=== PATIENT | female | born 1945 | race Caucasian/White ===

== ENCOUNTER 2016-07-19 17:34 | Inpatient (IN) | payer MEDICARE, OTHER ==
[~2016-07-19] VITALS: Ht 167.6 cm; Wt 51.5 kg
[~2016-07-19 17:34] MED LIST: FERR325T PO; PROT40TA PO; SYNT25TA PO; TAB-TAB PO
[2016-07-19 17:41] VITALS: BP 134/75; PULSE 79; RESP 16; TEMP 98.2; O2SAT 96
[2016-07-19] MEDS ORDERED: VITA100021 SL (17:59)
[2016-07-19] MEDS ORDERED: OMEP20TA PO (17:59)
[2016-07-19] MEDS ORDERED: SYNT25TA PO (17:59)
[2016-07-19] MEDS ORDERED: FERR325T PO (17:59)
--- NOTE | 2016-07-19 18:29 | PD ---
HPI Chief Complaint: Fall Time Seen by Provider: 18:21 Travel History International Travel<30 days: No Contact w/Intl Traveler<30days: No Traveled to known affect area: No History of Present Illness HPI This 71-year-old female had a fall at home. She tripped on a shoe. She did this with and landed on her left side. She is having pain in her left hip and left shoulder. She did not hit her head. There was no loss of consciousness. She is not on any blood thinners. She has been unable to walk on her left leg since the fall. She has a history of colon polyps and TIA. PFSH Past Medical History Hx Anticoagulant Therapy: No Arthritis: Yes Asthma: Yes Autoimmune Disease: No Depression: Yes (AFTER OF ) Cancer: Yes (PRE CA.POLYPS REMOVED.) Cardiovascular Problems: Yes High Cholesterol: No Cerebrovascular Accident: Yes (cva , tia) Endocrine: Yes Gastrointestinal Disorders: Yes GERD: Yes Genitourinary: Yes (ONLY HAS ONE KIDNEY SINCE ) Headaches: Yes Hiatal Hernia: No Immune Disorder: No Musculoskeletal: Yes Neurologic: Yes Psychiatric: Yes Reproductive: Yes (HYSTERECTOMY ) Respiratory: Yes (ENVIRONMENTAL ALLERGIES) Migraines: Yes (CHRONIC HX SINCE CHILDHOOD ) Sickle Cell Disease: No Thyroid Disease: Yes (TAKES MEDS FOR THYROID ISSUES ) Ulcer: No Influenza Vaccination: No ?: Not Past Surgical History Abdominal Surgery: Yes (TUMOR REMOVED, COLON RESECTION. ) Section: Yes (X1) Gynecologic Surgery: Yes (HYSTERECTOMY, ) Hysterectomy: Yes Pacemaker: No Thoracic Surgery: Yes ("LUNG WEDGE"- RLL) Other Surgery: Yes Social History Alcohol Use: No Tobacco Use: No Substance Use: No Allergies-Medications (Allergen,Severity, Reaction): Coded Allergies: Morphine (Verified Allergy, Intermediate, hives, 07/19/16) Demerol (Verified Allergy, Unknown, Swelling, 07/19/16) Reported Meds & Prescriptions Reported Meds & Active Scripts Active Reported Vitamin B-12 (Cyanocobalamin) 1,000 Mcg Subl 1,000 Mcg SL DAILY Omeprazole 20 Mg Tab 20 Mg PO DAILY Synthroid (Levothyroxine Sodium) 25 Mcg Tab 25 Mcg PO DAILY Ferrous Sulfate 325 Mg Tab 325 Mg PO DAILY Review of Systems General / Constitutional: No: Fever, Chills Eyes: No: Diploplia, Blurred Vision HENT: No: Headaches Cardiovascular: No: Chest Pain or Discomfort, Palpitations Respiratory: No: Cough, Shortness of Breath Gastrointestinal: No: Nausea, Vomiting Genitourinary: No: Urgency, Frequency Musculoskeletal: Positive: Myalgias, Pain Skin: No Rash, No Itching Neurologic: No: Weakness, Dizziness Psychiatric: No: Anxiety Endocrine: No: Heat Intolerance, Cold Intolerance Hematologic/Lymphatic: No: Easy Bruising Physical Exam Narrative GENERAL: Thin lady SKIN: Warm and dry. HEAD: Atraumatic. Normocephalic. EYES: Pupils equal and round. No scleral icterus. No injection or drainage. ENT: No nasal bleeding or discharge. Mucous membranes pink and moist. NECK: Trachea midline. No JVD. CARDIOVASCULAR: Regular rate and rhythm. No murmur appreciated. RESPIRATORY: No accessory muscle use. Clear to auscultation. Breath sounds equal bilaterally. GASTROINTESTINAL: Abdomen soft, non-tender, nondistended. Hepatic and splenic margins not palpable. MUSCULOSKELETAL: No obvious deformities. No clubbing. No cyanosis. No edema. There is some tenderness over the proximal humerus. She is able to move the shoulder . There is no ecchymosis or deformity. There is tenderness in the left inguinal area. There is some pain with movement at the left hip. There is no shortening of the hip NEUROLOGICAL: Awake and alert. No obvious cranial nerve deficits. Motor grossly within normal limits. Normal speech. PSYCHIATRIC: Appropriate mood and affect; insight and judgment normal. Data Data Last Documented VS Vital Signs Date Time Temp Pulse Resp B/P Pulse Ox O2 Delivery O2 Flow Rate FiO2 07/19/16 17:41 98.2 79 16 134/75 96 Orders Hip, Uni(Ap&Lat) W Ap Pelvis (07/19/16 18:27) Shoulder, Complete (>2vws) (07/19/16 18:27) Chest, Single Ap (07/19/16 ) Electrocardiogram (07/19/16 18:57) Complete Blood Count With Diff (07/19/16 18:57) Comprehensive Metabolic Panel (07/19/16 18:57) Prothrombin Time / Inr (Pt) (07/19/16 18:57) Act Partial Throm Time (Ptt) (07/19/16 18:57) Urinalysis - C+S If Indicated (07/19/16 18:57) Type And Screen (07/19/16 18:57) Iv Access Insert/Monitor (07/19/16 18:57) Oximetry (07/19/16 18:57) Ecg Monitoring (07/19/16 18:57) Sodium Chloride 0.9% Flush (Ns Flush) (07/19/16 19:00) Sodium Chlor 0.9% 1000 Ml Inj (Ns 1000 M (07/19/16 19:15) Ondansetron Inj (Zofran Inj) (07/19/16 19:15) Hydromorphone Pf Inj (Dilaudid Pf Inj) (07/19/16 19:15) Urinary Catheter Insert/Apply (07/19/16 19:47) Labs Laboratory Tests Test 07/19/16 07/19/16 19:25 20:00 White Blood Count 17.0 TH/MM3 Red Blood Count 4.35 MIL/MM3 Hemoglobin 12.3 GM/DL Hematocrit 37.5 % Mean Corpuscular Volume 86.3 FL Mean Corpuscular Hemoglobin 28.3 PG Mean Corpuscular Hemoglobin 32.7 % Concent Red Cell Distribution Width 15.8 % Platelet Count 360 TH/MM3 Mean Platelet Volume 10.4 FL Neutrophils (%) (Auto) 87.8 % Lymphocytes (%) (Auto) 5.7 % Monocytes (%) (Auto) 5.3 % Eosinophils (%) (Auto) 0.5 % Basophils (%) (Auto) 0.7 % Neutrophils # (Auto) 14.9 TH/MM3 Lymphocytes # (Auto) 1.0 TH/MM3 Monocytes # (Auto) 0.9 TH/MM3 Eosinophils # (Auto) 0.1 TH/MM3 Basophils # (Auto) 0.1 TH/MM3 CBC Comment AUTO DIFF Differential Comment AUTO DIFF CONFIRMED Platelet Estimate NORMAL Platelet Morphology Comment NORMAL Red Cell Morphology Comment NORMAL Prothrombin Time 10.1 SEC Prothromb Time International 0.9 RATIO Ratio Activated Partial 23.4 SEC Thromboplast Time Sodium Level 145 MEQ/L Potassium Level 4.2 MEQ/L Chloride Level 112 MEQ/L Carbon Dioxide Level 24.1 MEQ/L Anion Gap 9 MEQ/L Blood Urea Nitrogen 21 MG/DL Creatinine 0.54 MG/DL Estimat Glomerular Filtration 111 ML/MIN Rate Random Glucose 99 MG/DL Calcium Level 8.2 MG/DL Total Bilirubin 0.2 MG/DL Aspartate Amino Transf 28 U/L (AST/SGOT) Alanine Aminotransferase 22 U/L (ALT/SGPT) Alkaline Phosphatase 133 U/L Total Protein 5.0 GM/DL Albumin 1.9 GM/DL Urine pH 6.5 Urine Protein NEG mg/dL Urine Glucose (UA) NEG mg/dL Urine Ketones 15 mg/dL Urine Occult Blood NEG Urine Nitrite NEG Urine Bilirubin NEG Urine Leukocyte Esterase NEG MDM Medical Decision Making Medical Screen Exam Complete: Yes Emergency Medical Condition: Yes Medical Record Reviewed: Yes Differential Diagnosis Differential includes fractured shoulder, fractured hip, fractured pelvis Narrative Course X-ray of the left shoulder shows degenerative changes. X-ray of the left hip shows a minimally displaced subcapital fracture of the left femoral neck. Chest x-ray shows minimal basilar scarring. I have discussed the case with Dr. Eng. He requests admission to medical service with consult to orthopedics. Diagnosis Primary Impression: Fracture of left hip Qualified Code: S72.002A - Fracture of left hip, closed, initial encounter Admitting Information Admitting Physician Requests: Admit Mayur Mendez MD Jul 19, 2016 18:29
[2016-07-19] MEDS ORDERED: SODIUM CHLORIDE 0.9% FLUSH 5 ML FLUSH IVF PRN (19:00)
[2016-07-19] MEDS ORDERED: HYDROmorphone HCL PF 1 MG/ML VIAL IV PUSH ONE (19:15)
[2016-07-19] MEDS ORDERED: ONDANSETRON HCL 4 MG/2 ML VIAL IV PUSH ONE (19:15)
--- NOTE | 2016-07-19 19:24 | RADHPO ---
EXAM DATE/TIME: 07/19/2016 18:36 [facility] COMPARISON: No previous studies available for comparison. INDICATIONS : Left shoulder pain after falling today. MEDICAL HISTORY : Venous insufficiency. CVA. TIA. Asthma. SURGICAL HISTORY : Hysterectomy. Colon resection. ENCOUNTER: Initial ACUITY: 1 day PAIN SCORE: 7/10 LOCATION: Left shoulder. FINDINGS: Multiple view examination of the left shoulder demonstrates advanced osteoarthritis of the shoulder j oint. No acute fracture or dislocation. CONCLUSION: 1. Osteoarthritis of the left shoulder joint with subchondral cystic changes in the humeral head. No acute bony abnormalities. Shawn Gallardo MD on July 19, 2016 at 19:20 Board Certified Radiologist. This report was verified electronically.
--- NOTE | 2016-07-19 19:36 | RADHPO ---
EXAM DATE/TIME: 07/19/2016 18:38 [facility] COMPARISON: No previous studies available for comparison. INDICATIONS : Left hip pain after falling today. MEDICAL HISTORY : CVA. TIA. Asthma. SURGICAL HISTORY : Hysterectomy. Colon resection. ENCOUNTER: Initial ACUITY: 1 day PAIN SCORE: 7/10 LOCATION: Left hip. FINDINGS: There is a minimally displaced subcapital fracture of the left femoral neck. No dislocation. No other fractures noted. CONCLUSION: 1. Minimally displaced subcapital fracture left femoral neck. Shawn Gallardo MD on July 19, 2016 at 19:23 Board Certified Radiologist. This report was verified electronically.
--- NOTE | 2016-07-19 19:38 | RADHPO ---
EXAM DATE/TIME: 07/19/2016 18:57 [facility] COMPARISON: CHEST SINGLE AP, October 05, 2013, 18:28. INDICATIONS : Evaluate for pneumonia, pneumothorax, or communicable disease. Patient fell today. Possible hip fra cture. MEDICAL HISTORY : CVA. TIA. Asthma. SURGICAL HISTORY : Hysterectomy. Colon resection. ENCOUNTER: Initial ACUITY: 1 day PAIN SCORE: 0/10 LOCATION: Bilateral chest FINDINGS: A single view of the chest demonstrates minimal basilar lung scarring. Right costophrenic angle is cl ipped on this exam. Osteoarthritis of the left shoulder joint. No pneumothorax or effusion. CONCLUSION: 1. No pneumothorax or effusion. Osteoarthritis of the left shoulder. Basilar lung scarring. Shawn Gallardo MD on July 19, 2016 at 19:35 Board Certified Radiologist. This report was verified electronically.
[2016-07-19] MEDS: SODIUM CHLOR 0.9% 1000 ML INJ 1,000 ML IV SCH (19:39)
[2016-07-19 19:47] LABS: AUTOMATED NEUTROPHIL # 14.9 TH/MM3 (1.8-7.7); BASOPHIL # 0.1 TH/MM3 (0-0.2); BASOPHIL % 0.7 % (0.0-2.0); EOSINOPHIL # 0.1 TH/MM3 (0-0.4); EOSINOPHIL % 0.5 % (0.0-4.0); HEMATOCRIT 37.5 % (35.0-46.0); LYMPH % 5.7 % (9.0-44.0); MEAN CELL VOLUME 86.3 FL (80.0-100.0); MEAN CORPUSCULAR HEMOGLOBIN 28.3 PG (27.0-34.0); MEAN CORPUSCULAR HGB CONC 32.7 % (32.0-36.0); MONO % 5.3 % (0.0-8.0); NEUT % 87.8 % (16.0-70.0); PLATELET COUNT 360 TH/MM3 (150-450); RED BLOOD COUNT 4.35 MIL/MM3 (4.00-5.30); RED CELL DISTRIBUTION WIDTH 15.8 % (11.6-17.2)
[2016-07-19 19:56] LABS: CHLORIDE 112 MEQ/L (98-107); POTASSIUM 4.2 MEQ/L (3.5-5.1); SODIUM (NA) 145 MEQ/L (136-145)
[2016-07-19 19:57] LABS: HEMO FLAGS AUTO DIFF
[2016-07-19 19:59] LABS: APTT (PATIENT) 23.4 SEC (24.3-30.1); INTERNATIONAL NORMALIZED RATIO 0.9 RATIO; PROTHROMBIN TIME - PATIENT 10.1 SEC (9.8-11.6)
[2016-07-19 20:00] LABS: ANION GAP 9 MEQ/L (5-15); BICARBONATE 24.1 MEQ/L (21.0-32.0); BLOOD UREA NITROGEN 21 MG/DL (7-18)
[2016-07-19 20:03] LABS: ALT (GPT) 22 U/L (10-53); AST (GOT) 28 U/L (15-37); GLOMERULAR FILTRATION RATE 111 ML/MIN (>89)
[2016-07-19 20:04] LABS: TOTAL BILIRUBIN ADULT 0.2 MG/DL (0.2-1.0)
[2016-07-19 20:06] LABS: ALKALINE PHOSPHATASE 133 U/L (45-117)
[2016-07-19 20:10] LABS: BLOOD, URINE NEG (NEG); GLUCOSE,URINE NEG (NEG); KETONE, URINE 15 mg/dL (NEG); NITRITE,URINE NEG (NEG); PH, URINE 6.5 (5.0-8.5)
[2016-07-19 20:19] LABS: PLATELET ESTIMATE SMEAR NORMAL (NORMAL); PLATELET MORPHOLOGY NORMAL (NORMAL); SCAN/DIFF AUTO DIFF CONFIRMED
[2016-07-19 20:25] LABS: METHOD OF COLLECTION CATH; URINE COLOR YELLOW (YELLW/STRAW)
[2016-07-19 20:26] LABS: MUCUS URINE OCC /lpf (OCC); SQUAMOUS EPITHELIAL CELL URINE 0-5 /hpf (0-5)
[2016-07-19 20:28] LABS: COMMENT (UR) CULT NOT INDICATED; CULTURE IF INDICATED CULT NOT INDICATED
[2016-07-19 20:30] VITALS: BP 123/82; PULSE 88; RESP 18; O2SAT 94
--- NOTE | 2016-07-19 20:58 | HHI.HP ---
HPI Service [facility] Hospitalists Primary Care Physician Jun Us M.D. Admission Diagnosis FRACTURE LEFT HIP Chief Complaint: shoulder and hip pain s/p fall Travel History International Travel<30 Days: No Contact w/Intl Traveler <30 Da: No Traveled to Known Affected Are: No History of Present Illness I have been asked by orthopedics department Dr. Eng to admit this 71-year- old female with hypothyroidism, hx of GERD, mild anemia who had a fall at home to the adult medical service. She reportedly tripped on a shoe and landed on her left side. She is having pain in her left hip and left shoulder. She did not hit her head and there was reportedly no loss of consciousness. She is not on any blood thinners. She has been unable to walk on her left leg since the fall. She has a history of gastric and colon polyps retiring partial gastrectomy and partial colectomy approximately 1-1/2 years ago. Review of Systems Constitutional: COMPLAINS OF: Weight loss, Change in appetite, DENIES: Diaphoretic episodes, Fatigue, Fever, Weight gain, Chills, Dizziness, Night Sweats Endocrine: DENIES: Abnorml menstrual pattern, Heat/cold intolerance, Polydipsia , Polyuria, Polyphagia Eyes: DENIES: Blurred vision, Diplopia, Eye inflammation, Eye pain, Vision loss , Photosensitivity, Double Vision Respiratory: DENIES: Apneas, Cough, Snoring, Wheezing, Hemoptysis, Sputum production, Shortness of breath Cardiovascular: DENIES: Chest pain, Palpitations, Syncope, Dyspnea on Exertion , PND, Lower Extremity Edema, Orthopnea, Claudication Gastrointestinal: DENIES: Abdominal pain, Black stools, Bloody stools, BRB per rectum, Constipation, Diarrhea, GERD, Nausea, Reflux, Vomiting, Difficulty Swallowing, Anorexia, See HPI Musculoskeletal: COMPLAINS OF: Joint pain Integumentary: DENIES: Abnormal pigmentation, Pruritus, Rash, Nail changes, Breast masses, Breast skin changes, Nipple discharge Hematologic/lymphatic: DENIES: Bruising, Lymphadenopathy Immunologic/allergic: DENIES: Eczema, Urticaria Neurologic: DENIES: Abnormal gait, Headache, Localized weakness, Paresthesias, Seizures, Speech Problems, Tremor, Poor Balance Psychiatric: DENIES: Anxiety, Confusion, Mood changes, Depression, Hallucinations, Agitation, Suicidal Ideation, Homicidal Ideation, Delusions, History of Bipolar, History of Schizophrenia Past Family Social History Past Medical History mild anemia GERD Fatigue Pulm HTN Prior uterine CA Past Surgical History c/s partial colectomy and partial gastrectomy in January 2015 at [facility] hysterectomy Wedge resection of lung due to benign tumor many years ago. 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 Alert and oriented. Pleasant. Cooperative. SKIN: No rashes, ecchymoses or lesions. Cool and dry. HEAD: Atraumatic. Normocephalic. No temporal or scalp tenderness. EYES: Pupils equal round and reactive. Extraocular motions intact. No scleral icterus. No injection or drainage. ENT: Nose without bleeding, purulent drainage or septal hematoma. Airway patent. NECK: Trachea midline. No JVD or lymphadenopathy. Supple, nontender, no meningeal signs. CARDIOVASCULAR: Regular rate and rhythm without murmurs, gallops, or rubs. RESPIRATORY: Clear to auscultation. Breath sounds equal bilaterally. No wheezes , rales, or rhonchi. GASTROINTESTINAL: Abdomen soft, non-tender, nondistended. No hepato-splenomegaly , or palpable masses. No guarding. Bowel sounds normal. MUSCULOSKELETAL: Extremities without clubbing, cyanosis, or edema. Noted tenderness to palpation over her left lateral hip with some mild external rotation and shortening of left lower extremity. Positive apprehension test left shoulder. NEUROLOGICAL: Awake and alert. Cranial nerves II through XII intact. Motor and sensory grossly within normal limits. Five out of 5 muscle strength in all muscle groups but pain limits her movement in left lower extremity. Normal speech. Laboratory Laboratory Tests Test 07/19/16 07/19/16 19:25 20:00 White Blood Count 17.0 Red Blood Count 4.35 Hemoglobin 12.3 Hematocrit 37.5 Mean Corpuscular Volume 86.3 Mean Corpuscular Hemoglobin 28.3 Mean Corpuscular Hemoglobin 32.7 Concent Red Cell Distribution Width 15.8 Platelet Count 360 Mean Platelet Volume 10.4 Neutrophils (%) (Auto) 87.8 Lymphocytes (%) (Auto) 5.7 Monocytes (%) (Auto) 5.3 Eosinophils (%) (Auto) 0.5 Basophils (%) (Auto) 0.7 Neutrophils # (Auto) 14.9 Lymphocytes # (Auto) 1.0 Monocytes # (Auto) 0.9 Eosinophils # (Auto) 0.1 Basophils # (Auto) 0.1 CBC Comment AUTO DIFF Differential Comment AUTO DIFF CONFIRMED Platelet Estimate NORMAL Platelet Morphology Comment NORMAL Red Cell Morphology Comment NORMAL Prothrombin Time 10.1 Prothromb Time International 0.9 Ratio Activated Partial 23.4 Thromboplast Time Sodium Level 145 Potassium Level 4.2 Chloride Level 112 Carbon Dioxide Level 24.1 Anion Gap 9 Blood Urea Nitrogen 21 Creatinine 0.54 Estimat Glomerular Filtration 111 Rate Random Glucose 99 Calcium Level 8.2 Total Bilirubin 0.2 Aspartate Amino Transf 28 (AST/SGOT) Alanine Aminotransferase 22 (ALT/SGPT) Alkaline Phosphatase 133 Total Protein 5.0 Albumin 1.9 Blood Type O POSITIVE Urine Collection Type CATH Urine Color YELLOW Urine Turbidity CLEAR Urine pH 6.5 Urine Specific [place] 1.015 Urine Protein NEG Urine Glucose (UA) NEG Urine Ketones 15 Urine Occult Blood NEG Urine Nitrite NEG Urine Bilirubin NEG Urine Leukocyte Esterase NEG Urine RBC 4-9 Urine Squamous Epithelial 0-5 Cells Urine Mucus OCC Microscopic Urinalysis Comment CULT NOT INDICATED Result Diagram: 07/19/16192407/19/161924 Assessment and Plan Problem List: (1) Fracture of left hip Status: Acute Plan: management per Dr Velasquez john requested admission to medical service We'll provide pain medication and gentle IV fluids overnight. (2) Leukocytosis Status: Acute Plan: possibly a/w stress reaction. CBC recently normal as outpt in early Jul 2016. Will repeat in AM. (3) Hypothyroidism Status: Chronic Plan: continue outpt med TSH 3.3 07/13/16 (4) GERD (gastroesophageal reflux disease) Status: Chronic Plan: continue ppi Code Status Full Discussed Condition With Patient and her daughter Physician Certification 2 Midnight Certification Type: Admission for Inpatient Services Order for Inpatient Services The services are ordered in accordance with Medicare regulations or non- Medicare payer requirements, as applicable. In the case of services not specified as inpatient-only, they are appropriately provided as inpatient services in accordance with the 2-midnight benchmark. Estimated LOS (days): 3 days is the estimated time the patient will need to remain in the hospital, assuming treatment plan goals are met and no additional complications. Post-Hospital Plan: SNF Problem Qualifiers (1) Fracture of left hip: Qualified Code: S72.002A - Fracture of left hip, closed, initial encounter Dwaine Fink PhD MD Jul 19, 2016 20:58
[2016-07-19] MEDS ORDERED: ONDANSETRON HCL 4 MG/2 ML VIAL IV PUSH PRN (21:45)
[2016-07-19 23:22] VITALS: RESP 18; O2SAT 98
[2016-07-20] VITALS (7 sets, daily range): BP systolic 100–134; BP diastolic 57–73; PULSE 58–92; RESP 16–18; TEMP 96.2–96.6; O2SAT 94–96
[2016-07-20] MEDS: HYDROmorphone HCL PF 1 MG/ML VIAL IV PUSH PRN ×4 (00:10→19:52)
[2016-07-20] MEDS: LEVOTHYROXINE SODIUM 25 MCG TAB PO SCH (06:13)
[2016-07-20 07:30] LABS: AUTOMATED NEUTROPHIL # 9.3 TH/MM3 (1.8-7.7); BASOPHIL % 0.3 % (0.0-2.0); EOSINOPHIL # 0.1 TH/MM3 (0-0.4); EOSINOPHIL % 0.5 % (0.0-4.0); HEMATOCRIT 33.6 % (35.0-46.0); HEMO FLAGS DIFF FINAL; LYMPH % 6.6 % (9.0-44.0); LYMPHOCYTE # 0.7 TH/MM3 (1.0-4.8); MEAN CELL VOLUME 84.5 FL (80.0-100.0); MEAN CORPUSCULAR HEMOGLOBIN 28.3 PG (27.0-34.0); MEAN CORPUSCULAR HGB CONC 33.5 % (32.0-36.0); MONO % 8.1 % (0.0-8.0); NEUT % 84.5 % (16.0-70.0); PLATELET COUNT 316 TH/MM3 (150-450); RED BLOOD COUNT 3.97 MIL/MM3 (4.00-5.30); RED CELL DISTRIBUTION WIDTH 15.5 % (11.6-17.2)
[2016-07-20 07:41] LABS: POTASSIUM 3.6 MEQ/L (3.5-5.1)
[2016-07-20 07:57] LABS: BICARBONATE 24.6 MEQ/L (21.0-32.0); CALCIUM-PROTEIN CORRECTED 9.1 MG/DL (8.5-10.1); TOTAL BILIRUBIN ADULT 0.4 MG/DL (0.2-1.0)
[2016-07-20] MEDS ORDERED: ONDANSETRON HCL 4 MG/2 ML VIAL IV PUSH ONE (08:06)
[2016-07-20] MEDS ORDERED: PROPOFOL 200 MG/20 ML AMP IV ONE (08:06)
[2016-07-20] MEDS ORDERED: PHENYLEPH/NS 1000 MCG/10 ML SYR IV ONE (08:06)
[2016-07-20] MEDS ORDERED: LACTATED RINGER'S 1000 ML INJ 1,000 ML IV ONE (08:06)
[2016-07-20] MEDS ORDERED: CYAN500S SL (08:53)
[2016-07-20] MEDS ORDERED: LEVO25TA4 PO (08:56)
[2016-07-20] MEDS: LACTATED RINGER'S 1000 ML IV SCH (09:00)
[2016-07-20] MEDS ORDERED: INSULIN HUMAN REGULAR 1,000 UNITS/10 ML VIAL SQ PRN (09:00)
[2016-07-20] MEDS ORDERED: METOPROLOL TARTRATE 25 MG TAB PO PRN (09:00)
[2016-07-20] MEDS: SODIUM CHLORID 0.9% 500 ML IV SCH (09:00)
[2016-07-20] MEDS ORDERED: HYDROmorphone HCL PF 2 MG/ML VIAL ONE (10:42)
[2016-07-20] MEDS ORDERED: FAMOTIDINE 20 MG/2 ML VIAL ONE (10:43)
[2016-07-20] MEDS ORDERED: ACETAMINOPHEN 1000 MG/100 ML VIAL IV ONE (10:43)
[2016-07-20] MEDS ORDERED: VANCOMYCIN HCL 1000 MG VIAL ONE (11:26)
[2016-07-20] MEDS ORDERED: SODIUM CHLOR 0.9% 250 ML INJ 250 ML ONE (11:26)
[2016-07-20] MEDS ORDERED: ceFAZolin INJ 1,000 MG VIAL ONE (11:26)
[2016-07-20] MEDS ORDERED: BUPIVACAINE/EPINEPHRINE 0.25% PF 30 ML VIAL ONE (11:29)
--- NOTE | 2016-07-20 12:21 | PD.OP ---
cc: John Machado MD Operative Report Date of Surgery: Jul 20, 2016 Preoperative Diagnosis: Impacted left femoral neck fracture Postoperative Diagnosis: Same Procedure: Left hip pinning Anesthesia: Gen. Surgeon: John Machado Computer Engineering Technologist(s): DALLAS Smith PA-C The surgical procedure was assisted by my physician electrician station assistant. My P.A. presence was necessary throughout this case for the manipulation and positioning of the surgical extremity. My P.A. was assisting me throughout the duration of this procedure. The skill set of a physician electrician station assistant was medically necessary to complete this procedure. During the surgical case the salesperson surgical appliances was working at the back table and the physician electrician station assistant was directly assisting me. Operation and Findings: Plan of activity: TTWB Patient was seen and evaluated preoperatively. The patient has significant hip pain from impacted femoral neck fracture. The risk and benefits of surgery were discussed in depth with the patient to include bleeding infection nonunion malunion, avascular necrosis and need for hip replacement painful hardware as well as medical competitions including but not stroke heart attack and . Informed consent was obtained. Operative site was marked. Patient was brought to the operating room and placed on fracture table. IV sedation was administered by anesthesiologist. Timeout procedure was performed. Hip and leg were prepped with alcohol followed by Hibiclens and draped in the usual sterile fashion. IV antibiotics were given prior to incision. Procedure began with evaluation of fracture under fluoroscopy. Leg was gently manipulated to improve alignment. Excellent reduction was achieved. Fluoroscopy was used to confirm reduction. A three cm incision was along the lateral aspect of the proximal femur . Subcutaneous tissue was dissected bluntly. Three guidepins were placed through the lateral cortex of the proximal femur. Guide pins were placed in an inverted triangle position. Guide pins were advanced across the fracture site into the femoral head. Fluoroscopy confirmed appropriate guidepin placement. The screw lengths were measured. A cannulated drill was placed over each of the guide pins. Appropriate length Synthes 7.3 cannulated screws were placed over the guidepins. Good compression was applied across the fracture. Final fluoroscopy revealed well aligned fracture with well-placed hardware. Incision was closed with 3-0 Vicryl and noe. Sterile dressings were applied. Patient was awakened and transferred to recovery room. John Machado MD Jul 20, 2016 12:20
[2016-07-20] MEDS ORDERED: SODIUM CHLORIDE 0.9% FLUSH 5 ML FLUSH IVF PRN (12:30)
[2016-07-20] MEDS ORDERED: ACETAMINOPHEN/HYDROcodone 325 MG/5 MG TAB PO PRN ×2 (12:30)
[2016-07-20] MEDS ORDERED: Post-op Orders (for Pharmacy) MISC XX ONE (12:30)
[2016-07-20] MEDS ORDERED: ERGOCALCIFEROL (VIT D2) 50,000 UNIT CAP PO ONE (12:30)
[2016-07-20] MEDS ORDERED: NORC5TAB PO (12:33)
[2016-07-20] MEDS ORDERED: XARE10TA PO (12:34)
[2016-07-20] MEDS ORDERED: WALKER/ADULT/FO1 MIS (12:36)
--- NOTE | 2016-07-20 12:52 | MB ---
cc: ROMAN BYERS DATE OF CONSULTATION: 07/20/2016 REASON FOR CONSULTATION Left hip fracture. CONSULTING PHYSICIAN Dr. Leija. HISTORY OF PRESENT ILLNESS Miroslava is a 71-year-old female who has a history of reflux, hypothyroidism, osteoporosis. She tripped over a shoe and fell. She landed on her left side. She describes a mechanical fall. She denies any dizziness or syncope. She did not hit her head. She had immediate left hip pain. She was unable to stand or ambulate. She presented to the emergency room where x-rays revealed a left femoral neck fracture. She is currently awake and alert. She is alert and oriented x3. Her only complaint is her left hip. Pain is worse with movement and is improved with rest. PAST MEDICAL HISTORY ILLNESSES 1. Anemia. 2. Reflux. 3. Hypertension. 4. Prior uterine carcinoma. SURGERIES 1. . 2. Partial colectomy. 3. Hysterectomy. 4. Lung resection. 5. Colonoscopy. 6. EGDs. ALLERGIES MORPHINE AND DEMEROL. MEDICATIONS Please see EMR for complete list of inpatient medications. This was reviewed. FAMILY HISTORY Noncontributory. SOCIAL HISTORY The patient denies alcohol, tobacco or drug use. She lives with her daughter. REVIEW OF SYSTEMS The patient denies headache, visual changes, neck pain, chest pain, shortness of breath, abdominal pain, nausea, vomiting or recent weight loss. She complains of left hip pain. Pain is worse with movement. PHYSICAL EXAMINATION GENERAL: The patient is a thin 71-year-old female who is awake and alert. She is alert and oriented x3. VITAL SIGNS: Temperature 98.2, pulse 85, respirations 16, blood pressure 116/58, O2 sat 97% on room air. HEAD: The patient is normocephalic. Pupils are equal. NECK: Soft, nontender. Trachea is midline. ABDOMEN: Soft, nontender, nondistended. EXTREMITIES: Examination of bilateral upper extremities reveals no pain with shoulder, elbow or wrist motion. She has intact sensation in all fingers. She has good cap refill in all fingers. Skin is intact. She has +5 skidway worker strength bilaterally. Radial pulses are palpable. Examination of right leg reveals no significant pain with hip, knee or ankle motion. Skin is intact. Dorsalis pedis pulses palpable. Sensation is intact to right foot. Examination of left leg reveals pain with any hip motion. She has no tenderness around her knee, tibia or ankle. Skin is intact. Dorsalis pedis pulse is palpable. X-RAYS X-rays of the left hip were reviewed. X-rays reveal an impacted left femoral neck fracture. IMPRESSION Impacted left femoral neck fracture. PLAN Treatment options were discussed with the patient as well as her daughter. At this point I would recommend pinning of left hip. Risks of surgery include bleeding, infection, injuries to arteries, nerves and blood vessels, painful hardware, bursitis, avascular process, nonunion, need for hip replacement as well as medical complications including blood clot, stroke, heart attack and . All questions were answered. I will plan on surgery today. A mid-level provider in my office (nurse practitioner or physician per diem physical therapist assistant) may see this patient on follow-up visits and continue to implement the objectives of this plan including: Starting or adjusting medications, injections , cast application, orthotics, brace application, physical therapy, radiological studies (including x-ray, MRI, CT, ultrasound, bone scan), vascular studies, neurologic studies, specialist consultation, and proceeding with surgical management, as appropriate. MD ISELA Lai/EVELYN /11:56 AM /12:35 PM MTDD
[2016-07-20] MEDS: SODIUM CHLOR 0.9% 1000 ML INJ 1,000 ML IV SCH ×2 (12:59→19:05)
[2016-07-20] MEDS ORDERED: *ONDANSETRON 4 MG VIAL PERIprocedural Use ONLY ONE (14:00)
[2016-07-20] MEDS ORDERED: *PROMETHAZINE 25 MG/ML VIAL PERIprocedural use ONLY ONE (14:57)
--- NOTE | 2016-07-20 16:25 | RADRPT ---
EXAM DATE/TIME: 07/20/2016 12:15 [facility] COMPARISON: No previous studies available for comparison. INDICATIONS : ORIF left hip pinning. MEDICAL HISTORY : None. SURGICAL HISTORY : None. ENCOUNTER: Subsequent ACUITY: 2 days PAIN SCORE: Non-responsive. LOCATION: Left hip. FINDINGS: Three Harvey pins are seen bridging the femoral neck fracture. Alignment is anatomic. CONCLUSION: Anatomic alignment. Pete Ng MD FACR on July 20, 2016 at 16:05 Board Certified Radiologist. This report was verified electronically.
--- NOTE | 2016-07-20 17:48 | HHI.PR ---
Subjective Remarks doing well postop Objective Vitals heart reg lung cta abd s/nt ext no edema medeiros Vital Signs Date Time Temp Pulse Resp B/P Pulse Ox O2 Delivery O2 Flow Rate FiO2 07/20/16 16:45 96.6 80 18 134/73 95 07/20/16 16:00 97.7 78 14 127/77 96 Room Air 07/20/16 15:00 78 14 137/83 95 Nasal Cannula 2 07/20/16 14:00 88 14 144/82 95 Nasal Cannula 2 07/20/16 13:15 79 14 138/82 95 Nasal Cannula 2 07/20/16 13:00 73 14 139/78 95 Nasal Cannula 2 07/20/16 12:45 76 12 141/83 94 Nasal Cannula 2 07/20/16 12:32 97.5 87 12 118/76 93 Nasal Cannula 2 07/20/16 07:16 85 16 116/58 97 07/20/16 05:37 86 18 103/65 94 Room Air 07/20/16 05:07 18 07/20/16 05:06 88 100/57 94 Room Air 07/20/16 04:35 86 18 106/61 95 Room Air 07/20/16 00:43 92 18 113/73 95 Room Air 07/19/16 23:22 18 98 Room Air 07/19/16 20:39 18 07/19/16 20:30 88 18 123/82 94 Room Air 07/19/16 20:30 88 18 95 Room Air 07/19/16 07/19/16 07/20/16 15:00 23:00 07:00 Output Total 1200 ml Balance -1200 ml Output Urine Total 1200 ml # Voids 0 Result Diagram: 07/20/16 0723 07/20/16 0723 A/P Problem List: (1) Fracture of left hip Status: Acute Plan: s/p trip/fall left hip fx s/p pinning 07/20 d/c medeiros tomorrow pain meds IS PT dvt prophylaxis. plan for snf (2) Hypothyroidism Status: Chronic Plan: continue outpt med TSH 3.3 07/13/16 (3) GERD (gastroesophageal reflux disease) Status: Chronic Plan: continue ppi Problem Qualifiers (1) Fracture of left hip: Qualified Code: S72.002A - Fracture of left hip, closed, initial encounter Leroy Leija MD Jul 20, 2016 17:48
[2016-07-20] MEDS: SODIUM CHLORIDE 0.9% FLUSH 5 ML FLUSH IVF SCH (21:00)
--- NOTE | 2016-07-20 22:30 | EKG ---
Date Performed: 07/19/2016 Time Performed: 19:31:44 PTAGE: 71 years EKG: Probably Sinus rhythm with PACs vs ectopic atrial rhythm with PAC(s) Poor R wave progression - probable normal variant Ant erior T wave changes are nonspecific Low QRS voltages in precordial leads Borderline ECG PREVIOUS TRACING : 10/05/2013 18.48 Compared to prior tracing no significant change DOCTOR: Riccardo Richard Interpretating Date/Time 07/20/2016 22:28:41
[2016-07-21] VITALS (8 sets, daily range): BP systolic 84–118; BP diastolic 52–75; PULSE 69–96; RESP 16–48; TEMP 95.9–98.7; O2SAT 92–99
[2016-07-21] MEDS: ENOXAPARIN SODIUM 30 MG/0.3 ML SYRINGE SQ SCH (01:00)
[2016-07-21] MEDS: SODIUM CHLORID 0.9% 500 ML IV SCH (01:40)
[2016-07-21] MEDS: LEVOTHYROXINE SODIUM 25 MCG TAB PO SCH (05:49)
--- NOTE | 2016-07-21 06:35 | PD.ORT.PN ---
Subjective Subjective Remarks POD 1 s/p Perc Pinning left hip doing well. pain controlled. Objective Vitals Vital Signs Date Time Temp Pulse Resp B/P Pulse Ox O2 Delivery O2 Flow Rate FiO2 07/21/16 03:40 96.6 94 18 99/54 92 07/21/16 00:35 96.5 81 18 104/71 92 07/20/16 21:55 21 07/20/16 20:45 96.2 58 16 122/69 96 07/20/16 16:45 96.6 80 18 134/73 95 07/20/16 16:00 97.7 78 14 127/77 96 Room Air 07/20/16 15:00 78 14 137/83 95 Nasal Cannula 2 07/20/16 14:00 88 14 144/82 95 Nasal Cannula 2 07/20/16 13:15 79 14 138/82 95 Nasal Cannula 2 07/20/16 13:00 73 14 139/78 95 Nasal Cannula 2 07/20/16 12:45 76 12 141/83 94 Nasal Cannula 2 07/20/16 12:32 97.5 87 12 118/76 93 Nasal Cannula 2 07/20/16 07:16 85 16 116/58 97 I/O 07/20/16 07/20/16 07/20/16 07/21/16 07/21/16 07/21/16 07:00 15:00 23:00 07:00 15:00 23:00 Intake Total 1000 ml 513 ml 260 ml Output Total 1200 ml 420 ml 650 ml 300 ml Balance -1200 ml 580 ml -137 ml -40 ml Intake Oral 150 ml IV Total 363 ml 260 ml Other 1000 ml Output Urine Total 1200 ml 400 ml 650 ml 300 ml Estimated Blood Loss 20 ml # Voids 0 # Bowel Movements 0 Result Diagram: 07/20/1672207/20/1623 Objective Remarks LLE: dressings clean and dry. intact. NVI Assessment & Plan Assessment and Plan 1) Left Femoral Neck Fx s/p Perc Pinning - POD 1 -TTWB x 3 weeks then will progress to 50%WB -daily dressing changes POD 2 -CM for rehab vs home health -plan for DC tomorrow or monday -f/u Kiersten or LEIGHA in 2 weeks Narciso Munoz Jul 21, 2016 06:35
[2016-07-21] MEDS: SODIUM CHLOR 0.9% 1000 ML INJ 1,000 ML IV SCH (07:00)
[2016-07-21 07:02] LABS: HEMATOCRIT 32.8 % (35.0-46.0); REVIEW FLAG FINAL
[2016-07-21] MEDS: CYANOCOBALAMIN 1,000 MCG TAB PO SCH ×2 (09:00→09:23)
[2016-07-21] MEDS: LACTATED RINGER'S 1000 ML IV SCH (09:00)
[2016-07-21] MEDS: FERROUS SULFATE 325 MG (65 MG ELEMENTAL IRON) TAB PO SCH ×2 (09:00→09:23)
[2016-07-21] MEDS: PANTOPRAZOLE SOD 20 MG DELAYED RELEASE TAB PO SCH ×2 (09:00→09:23)
[2016-07-21] MEDS: CHOLECALCIFEROL (VIT D3) 5000 UNIT CAP PO SCH (09:23)
[2016-07-21] MEDS: SODIUM CHLORIDE 0.9% FLUSH 5 ML FLUSH IVF SCH ×2 (09:31→20:07)
--- NOTE | 2016-07-21 12:29 | HHI.PR ---
Subjective Remarks Pts BP running low today but complains of pain Pt tolerating her diet Denies any nausea or vomiting. Afebrile Objective Vitals Vital Signs Date Time Temp Pulse Resp B/P Pulse Ox O2 Delivery O2 Flow Rate FiO2 07/21/16 11:56 95.9 69 48 96/62 94 07/21/16 11:00 78 118/56 07/21/16 08:00 96.6 73 18 84/52 92 07/21/16 03:40 96.6 94 18 99/54 92 07/21/16 00:35 96.5 81 18 104/71 92 07/20/16 21:55 21 07/20/16 20:45 96.2 58 16 122/69 96 07/20/16 16:45 96.6 80 18 134/73 95 07/20/16 16:00 97.7 78 14 127/77 96 Room Air 07/20/16 15:00 78 14 137/83 95 Nasal Cannula 2 07/20/16 14:00 88 14 144/82 95 Nasal Cannula 2 07/20/16 13:15 79 14 138/82 95 Nasal Cannula 2 07/20/16 13:00 73 14 139/78 95 Nasal Cannula 2 07/20/16 12:45 76 12 141/83 94 Nasal Cannula 2 07/20/16 12:32 97.5 87 12 118/76 93 Nasal Cannula 2 07/20/16 07/20/16 07/21/16 15:00 23:00 07:00 Intake Total 1000 ml 513 ml 500 ml Output Total 420 ml 650 ml 650 ml Balance 580 ml -137 ml -150 ml Intake Oral 150 ml 240 ml IV Total 363 ml 260 ml Other 1000 ml Output Urine Total 400 ml 650 ml 650 ml Estimated Blood Loss 20 ml # Bowel Movements 0 0 Result Diagram: 07/21/16 0625 07/20/16 0723 Other Results Laboratory Tests Test 07/19/16 07/19/16 07/20/16 07/21/16 19:25 20:00 07:23 06:25 White Blood Count 17.0 TH/MM3 11.0 TH/MM3 Red Blood Count 4.35 MIL/MM3 3.97 MIL/MM3 Hemoglobin 12.3 GM/DL 11.3 GM/DL 10.6 GM/DL Hematocrit 37.5 % 33.6 % 32.8 % Mean Corpuscular Volume 86.3 FL 84.5 FL Mean Corpuscular Hemoglobin 28.3 PG 28.3 PG Mean Corpuscular Hemoglobin 32.7 % 33.5 % Concent Red Cell Distribution Width 15.8 % 15.5 % Platelet Count 360 TH/MM3 316 TH/MM3 Mean Platelet Volume 10.4 FL 9.0 FL Neutrophils (%) (Auto) 87.8 % 84.5 % Lymphocytes (%) (Auto) 5.7 % 6.6 % Monocytes (%) (Auto) 5.3 % 8.1 % Eosinophils (%) (Auto) 0.5 % 0.5 % Basophils (%) (Auto) 0.7 % 0.3 % Neutrophils # (Auto) 14.9 TH/MM3 9.3 TH/MM3 Lymphocytes # (Auto) 1.0 TH/MM3 0.7 TH/MM3 Monocytes # (Auto) 0.9 TH/MM3 0.9 TH/MM3 Eosinophils # (Auto) 0.1 TH/MM3 0.1 TH/MM3 Basophils # (Auto) 0.1 TH/MM3 0.0 TH/MM3 CBC Comment AUTO DIFF DIFF FINAL Differential Comment AUTO DIFF CONFIRMED Platelet Estimate NORMAL Platelet Morphology Comment NORMAL Red Cell Morphology Comment NORMAL Prothrombin Time 10.1 SEC Prothromb Time International 0.9 RATIO Ratio Activated Partial 23.4 SEC Thromboplast Time Sodium Level 145 MEQ/L 144 MEQ/L Potassium Level 4.2 MEQ/L 3.6 MEQ/L Chloride Level 112 MEQ/L 111 MEQ/L Carbon Dioxide Level 24.1 MEQ/L 24.6 MEQ/L Anion Gap 9 MEQ/L 8 MEQ/L Blood Urea Nitrogen 21 MG/DL 14 MG/DL Creatinine 0.54 MG/DL 0.48 MG/DL Estimat Glomerular Filtration 111 ML/MIN 127 ML/MIN Rate Random Glucose 99 MG/DL 104 MG/DL Calcium Level 8.2 MG/DL 7.4 MG/DL Total Bilirubin 0.2 MG/DL 0.4 MG/DL Aspartate Amino Transf 28 U/L 18 U/L (AST/SGOT) Alanine Aminotransferase 22 U/L 16 U/L (ALT/SGPT) Alkaline Phosphatase 133 U/L 104 U/L Total Protein 5.0 GM/DL 4.2 GM/DL Albumin 1.9 GM/DL 1.6 GM/DL Blood Type O POSITIVE Antibody Screen NEGATIVE Urine Collection Type CATH Urine Color YELLOW Urine Turbidity CLEAR Urine pH 6.5 Urine Specific [place] 1.015 Urine Protein NEG mg/dL Urine Glucose (UA) NEG mg/dL Urine Ketones 15 mg/dL Urine Occult Blood NEG Urine Nitrite NEG Urine Bilirubin NEG Urine Leukocyte Esterase NEG Urine RBC 4-9 /hpf Urine Squamous Epithelial 0-5 /hpf Cells Urine Mucus OCC /lpf Microscopic Urinalysis Comment CULT NOT INDICATED Protein Corrected Calcium 9.1 MG/DL 25-Hydroxy Vitamin D Total 8.5 ng/ML Imaging Last Impressions Hip X-Ray 07/20/16 0000 Signed Impressions: Service Date/Time: Wednesday, July 20, 2016 12:15 - CONCLUSION: Anatomic alignment. Pete Ng MD FACR Shoulder X-Ray 07/19/161826 Signed Impressions: Service Date/Time: Tuesday, July 19, 2016 18:36 - CONCLUSION: 1. Osteoarthritis of the left shoulder joint with subchondral cystic changes in the humeral head. No acute bony abnormalities. Shawn Gallardo MD Hip and Pelvis X-Ray 07/19/161826 Signed Impressions: Service Date/Time: Tuesday, July 19, 2016 18:38 - CONCLUSION: 1. Minimally displaced subcapital fracture left femoral neck. Shawn Gallardo MD Chest X-Ray 07/19/16 0000 Signed Impressions: Service Date/Time: Tuesday, July 19, 2016 18:57 - CONCLUSION: 1. No pneumothorax or effusion. Osteoarthritis of the left shoulder. Basilar lung scarring. Shawn Gallardo MD Objective Remarks General: NAD, AAOx3 Chest: CTA bilaterally Cardiac: Regular, SY Abd: +BS, soft ND/NT Ext: no edema A/P Problem List: (1) Fracture of left hip Status: Acute Plan: - Pt admitted after a trip/fall resulting in a left hip fx - Pt s/p pinning on 07/20 - Cheung d/c today - Add Tramadol as the pts BP has been too low for [place] this morning - IS - PT - DVT prophylaxis. - Pt planed for SNF placement for rehab at the end of this hospitalization (2) Hypothyroidism Status: Chronic Plan: - Continue outpt med - TSH 3.3 on 07/13/16 (3) GERD (gastroesophageal reflux disease) Status: Chronic Plan: - Continue PPI Assessment and Plan Patient examined. Assessment and plan formulated with Heather Keyla PA-C. I agree with the above. Pt with hip fx. doing ok. monitor bp with pain meds plan snf. Problem Qualifiers (1) Fracture of left hip: Qualified Code: S72.002A - Fracture of left hip, closed, initial encounter Heather Ramires Jul 21, 2016 12:29 Leroy Leija MD Jul 21, 2016 13:06
[2016-07-21] MEDS: traMADol HCL 50 MG TAB PO PRN ×2 (15:25→20:05)
[2016-07-21] MEDS: DOCUSATE SODIUM 50 MG/SENNA 8.6 MG TAB PO PRN ×2 (15:25→20:05)
[2016-07-21] MEDS: DOCUSATE SODIUM 100 MG CAP PO SCH (20:04)
[2016-07-22] VITALS: BP 102/59; PULSE 93; RESP 16; TEMP 98.7; O2SAT 92
[2016-07-22] MEDS: ENOXAPARIN SODIUM 30 MG/0.3 ML SYRINGE SQ SCH (01:00)
[2016-07-22] MEDS: traMADol HCL 50 MG TAB PO PRN ×3 (02:50→20:20)
[2016-07-22] MEDS: LEVOTHYROXINE SODIUM 25 MCG TAB PO SCH (06:10)
[2016-07-22] MEDS ORDERED: VITA200012 PO (07:08)
[2016-07-22] MEDS ORDERED: ERGO1CAP10 PO (07:08)
--- NOTE | 2016-07-22 07:30 | PD.ORT.PN ---
Subjective Subjective Remarks Resting comfortably with no new complaints Objective Vitals Vital Signs Date Time Temp Pulse Resp B/P Pulse Ox O2 Delivery O2 Flow Rate FiO2 07/22/16 00:00 98.7 93 16 102/59 92 07/21/16 21:24 21 07/21/16 20:00 97.7 96 18 113/75 93 07/21/16 17:05 98.7 92 16 100/59 99 07/21/16 16:00 96.7 87 18 92/53 95 07/21/16 11:56 95.9 69 48 96/62 94 07/21/16 11:00 78 118/56 07/21/16 08:00 96.6 73 18 84/52 92 I/O 07/21/16 07/21/16 07/21/16 07/22/16 07/22/16 07/22/16 07:00 15:00 23:00 07:00 15:00 23:00 Intake Total 500 ml 750 ml 720 ml 240 ml Output Total 650 ml Balance -150 ml 750 ml 720 ml 240 ml Intake Oral 240 ml 750 ml 720 ml 240 ml IV Total 260 ml Output Urine Total 650 ml # Voids 2 1 1 # Bowel Movements 0 0 0 Result Diagram: 07/21/16 0625 07/20/16 0723 Objective Remarks LLE: dressings clean and dry. intact. NVI Assessment & Plan Assessment and Plan 1) Left Femoral Neck Fx s/p Perc Pinning - POD 2 -TTWB x 3 weeks then will progress to 50%WB, no active leglifts -daily dressing changes beginning today -CM for rehab Lovenox -plan for DC to rehabilitation when bed available -f/u Kiersten or LEIGHA in 2 weeks PARESH HURTADO PA-C Jul 22, 2016 07:30
[2016-07-22 08:00] VITALS: BP 123/71; PULSE 83; RESP 21; TEMP 97.1; O2SAT 92
[2016-07-22] MEDS: LACTATED RINGER'S 1000 ML IV SCH (08:20)
[2016-07-22] MEDS: FERROUS SULFATE 325 MG (65 MG ELEMENTAL IRON) TAB PO SCH (08:21)
[2016-07-22] MEDS: DOCUSATE SODIUM 100 MG CAP PO SCH ×2 (08:21→20:20)
[2016-07-22] MEDS: SODIUM CHLORIDE 0.9% FLUSH 5 ML FLUSH IVF SCH ×2 (08:21→20:20)
[2016-07-22] MEDS: CYANOCOBALAMIN 1,000 MCG TAB PO SCH (08:21)
[2016-07-22] MEDS: CHOLECALCIFEROL (VIT D3) 5000 UNIT CAP PO SCH (08:21)
[2016-07-22] MEDS: DOCUSATE SODIUM 50 MG/SENNA 8.6 MG TAB PO PRN (08:21)
[2016-07-22] MEDS: PANTOPRAZOLE SOD 20 MG DELAYED RELEASE TAB PO SCH (08:21)
--- NOTE | 2016-07-22 10:02 | HHI.PR ---
Subjective Remarks doing ok. prefers d/c to snf in AM. Objective Vitals heart reg. syst [place] lung cta abd s/nt ext no edema Vital Signs Date Time Temp Pulse Resp B/P Pulse Ox O2 Delivery O2 Flow Rate FiO2 07/22/16 08:00 97.1 83 21 123/71 92 07/22/16 00:00 98.7 93 16 102/59 92 07/21/16 21:24 21 07/21/16 20:00 97.7 96 18 113/75 93 07/21/16 17:05 98.7 92 16 100/59 99 07/21/16 16:00 96.7 87 18 92/53 95 07/21/16 11:56 95.9 69 48 96/62 94 07/21/16 11:00 78 118/56 07/21/16 07/21/16 07/22/16 14:59 22:59 06:59 Intake Total 750 ml 720 ml 240 ml Balance 750 ml 720 ml 240 ml Intake Oral 750 ml 720 ml 240 ml # Voids 2 1 1 # Bowel Movements 0 0 Result Diagram: 07/21/16 0625 07/20/16 0723 Imaging Last Impressions Hip X-Ray 07/20/16 0000 Signed Impressions: Service Date/Time: Wednesday, July 20, 2016 12:15 - CONCLUSION: Anatomic alignment. Pete Ng MD FACR Shoulder X-Ray 07/19/161826 Signed Impressions: Service Date/Time: Tuesday, July 19, 2016 18:36 - CONCLUSION: 1. Osteoarthritis of the left shoulder joint with subchondral cystic changes in the humeral head. No acute bony abnormalities. Shawn Gallardo MD Hip and Pelvis X-Ray 07/19/161826 Signed Impressions: Service Date/Time: Tuesday, July 19, 2016 18:38 - CONCLUSION: 1. Minimally displaced subcapital fracture left femoral neck. Shawn Gallardo MD Chest X-Ray 07/19/16 0000 Signed Impressions: Service Date/Time: Tuesday, July 19, 2016 18:57 - CONCLUSION: 1. No pneumothorax or effusion. Osteoarthritis of the left shoulder. Basilar lung scarring. Shawn Gallardo MD A/P Problem List: (1) Fracture of left hip Status: Acute Plan: - Pt admitted after a trip/fall resulting in a left hip fx - Pt s/p pinning on 07/20 - Cheung out - pain med changed to tramadol due to low bp. - IS - PT - DVT prophylaxis. -d/c to snf in AM. (2) Hypothyroidism Status: Chronic Plan: - Continue outpt med - TSH 3.3 on 07/13/16 (3) GERD (gastroesophageal reflux disease) Status: Chronic Plan: - Continue PPI Problem Qualifiers (1) Fracture of left hip: Qualified Code: S72.002A - Fracture of left hip, closed, initial encounter Leroy Leija MD Jul 22, 2016 10:02
--- NOTE | 2016-07-22 10:04 | HHI.DCPOC ---
Discharge Care Plan Diagnosis: (1) Fracture of left hip (2) Hypothyroidism (3) Leukocytosis Goals to Promote Your Health * To prevent worsening of your condition and complications * To maintain your health at the optimal level Directions to Meet Your Goals Take your medications as prescribed Follow your dietary instruction Follow activity as directed Keep your appointments as scheduled Take your immunizations and boosters as scheduled If your symptoms worsen call your PCP, if no PCP go to Urgent Care Center or Emergency Room Smoking is Dangerous to Your Health. Avoid second hand smoke Call the 24-hour hour crisis hotline for domestic abuse at Leroy Leija MD Jul 22, 2016 10:04
[2016-07-22 12:00] VITALS: BP 118/68; PULSE 81; RESP 18; TEMP 96.8; O2SAT 94
[2016-07-22 16:00] VITALS: BP 130/69; PULSE 85; RESP 23; TEMP 97.3; O2SAT 94
[2016-07-22 20:02] VITALS: BP 118/64; PULSE 94; RESP 16; TEMP 98.8; O2SAT 95
[2016-07-23] VITALS: BP 112/67; PULSE 83; RESP 16; TEMP 97.6; O2SAT 95
[2016-07-23] MEDS: ENOXAPARIN SODIUM 30 MG/0.3 ML SYRINGE SQ SCH (02:23)
[2016-07-23] MEDS: traMADol HCL 50 MG TAB PO PRN ×2 (02:24→08:21)
[2016-07-23] MEDS: LEVOTHYROXINE SODIUM 25 MCG TAB PO SCH (05:17)
[2016-07-23 08:00] VITALS: BP 151/83; PULSE 77; RESP 19; TEMP 96.2; O2SAT 95
[2016-07-23] MEDS: CYANOCOBALAMIN 1,000 MCG TAB PO SCH (08:14)
[2016-07-23] MEDS: PANTOPRAZOLE SOD 20 MG DELAYED RELEASE TAB PO SCH (08:14)
[2016-07-23] MEDS: SODIUM CHLORIDE 0.9% FLUSH 5 ML FLUSH IVF SCH (08:15)
[2016-07-23] MEDS: LACTATED RINGER'S 1000 ML IV SCH (08:15)
[2016-07-23] MEDS: CHOLECALCIFEROL (VIT D3) 5000 UNIT CAP PO SCH (08:15)
[2016-07-23] MEDS: FERROUS SULFATE 325 MG (65 MG ELEMENTAL IRON) TAB PO SCH (08:15)
[2016-07-23] MEDS: DOCUSATE SODIUM 100 MG CAP PO SCH (08:15)
--- NOTE | 2016-07-23 13:02 | HHI.DS ---
Discharge Summary Admission Date Jul 19, 2016 at 20:30 Discharge Date: Jul 23, 2016 Admitting Diagnosis FRACTURE LEFT HIP (1) Fracture of left hip Diagnosis: Principal (2) Hypothyroidism Diagnosis: Secondary (3) GERD (gastroesophageal reflux disease) Diagnosis: Secondary Brief History I have been asked by orthopedics department Dr. Eng to admit this 71-year- old female with hypothyroidism, hx of GERD, mild anemia who had a fall at home to the adult medical service. She reportedly tripped on a shoe and landed on her left side. She is having pain in her left hip and left shoulder. She did not hit her head and there was reportedly no loss of consciousness. She is not on any blood thinners. She has been unable to walk on her left leg since the fall. She has a history of gastric and colon polyps retiring partial gastrectomy and partial colectomy approximately 1-1/2 years ago. CBC/BMP: 07/21/16 0625 07/20/16 0723 Significant Findings Laboratory Tests Test 07/21/16 06:25 Hemoglobin 10.6 GM/DL (11.6-15.3) Hematocrit 32.8 % (35.0-46.0) Hospital Course - Pt admitted after a trip/fall resulting in a left hip fx - Pt s/p pinning on 07/20 - Cheung out, pain controlled. working with PT. - remained cardiovascularly stable postop. will be discharged to snf today. f/u with Ortho as ordered. Pt Condition on Discharge: Stable Discharge Disposition: Discharge to SNF Discharge Instructions DIET: Follow Instructions for: As Tolerated, No Restrictions Activities you can perform: See Additionl Instruction Other Activity Instructions: -TTWB x 3 weeks then will progress to 50%WB, no active leglifts Follow up Referrals: Orthopedics - 2 Weeks @ [facility] with John Burch MD New Medications: Cholecalciferol (Vitamin D3) 2,000 Unit Tab 2000 UNITS PO DAILY Nutritional Supplement Days 56 Ref 0 BOTTLE Ergocalciferol (Vitamin D) 50,000 Unit Cap 99557 UNITS PO Q7D Nutritional Supplement #30 Ref 0 CAP Hydrocodone-Acetaminophen (Edroy) 5-325 mg Tab 1 TAB PO Q4H PRN PAIN #60 Ref 0 TAB Rivaroxaban (Xarelto) 10 Mg Tab 10 MG PO DAILY Blood Clot Prevention #14 Ref 0 TAB Walker/Adult/Folding (Walker/Adult/Folding) 1 Mis Mis 1 EA .ROUTE DIRECTED #1 Ref 0 EA Leroy Leija MD Jul 23, 2016 13:02
== END 2016-07-23 12:13 | DRG 481 ==
LOC: PHED 17:34 → PHEDA 20:30 → PHEDH 07-20 00:30 → HSDI 07-20 08:16 → N06A 07-20 16:50
PROVIDERS: ADMIT Hospitalist; ATTEND Hospitalist
PROC: 0QS7XZZ Reposition Left Upper Femur, External Approach (ICD-10-PCS; 2016-07-20)
PROC: 0QH734Z Insertion of Internal Fixation Device into Left Upper Femur, Percutaneous Approach (ICD-10-PCS; principal; 2016-07-20 11:23)
DX: S72.012A Unspecified intracapsular fracture of left femur, initial encounter for closed fracture (principal); Q60.0 Renal agenesis, unilateral; D64.9 Anemia, unspecified; Z86.73 Personal history of transient ischemic attack (TIA), and cerebral infarction without residual deficits; W01.0XXA Fall on same level from slipping, tripping and stumbling without subsequent striking against object, initial encounter; Y92.009 Unspecified place in unspecified non-institutional (private) residence as the place of occurrence of the external cause; M81.0 Age-related osteoporosis without current pathological fracture; K21.9 Gastro-esophageal reflux disease without esophagitis; E03.9 Hypothyroidism, unspecified; I10 Essential (primary) hypertension; D72.829 Elevated white blood cell count, unspecified; Z85.42 Personal history of malignant neoplasm of other parts of uterus; Z86.010 Personal history of colon polyps
CPT/HCPCS: 51702; 71010; 73030; 73502; 76000; 80053; 81001; 82306; 85014; 85018; 85025; 85610; 85730; 86850; 86900; 86901; 93005; 96361; 96374; 96375; C1713; C1769; J0131; J0690; J1170; J1650; J2370; J2405; J2550; J3370; J7030; J7050; J7120; L1830

== ENCOUNTER 2017-08-10 13:07 | Inpatient (IN) | payer OTHER, MEDICAID, MEDICARE ==
[~2017-08-10] VITALS: Ht 160 cm; Wt 62.9 kg
[~2017-08-10 13:07] MED LIST changes: +ERGO1CAP10 PO; +LEVO25TA4 PO; +NORC5TAB PO; +OMEP20TA93 PO; -PROT40TA PO; -SYNT25TA PO; -TAB-TAB PO; +VITA200012 PO; +VITA500L2 SL; +WALKER/ADULT/FO1 MIS; +XARE10TA PO
[2017-08-10 13:11] VITALS: BP 112/53; PULSE 105; RESP 20; TEMP 98; O2SAT 95
[2017-08-10] MEDS ORDERED: SODIUM CHLORIDE 0.9% FLUSH 10 ML FLUSH IVF PRN (14:00)
--- NOTE | 2017-08-10 14:25 | PD ---
HPI Chief Complaint: Abnormal Results Time Seen by Provider: 13:48 Travel History International Travel<30 days: No Contact w/Intl Traveler<30days: No Traveled to known affect area: No History of Present Illness HPI 72 YO F with PMH of gastric resection presents to the ED for evaluation of low hemoglobin. The patient states that this was discovered by her industrial analyst today. They were drawing labs in preparation for iron infusions. On presentations she endorses SOB, SIDDIQUI. She denies headache, dizziness, CP, palpitations, cough, abdominal pain, N/V, changes in bowel habits. She endorses good appetite, eating 10 or so small meals a day. She states that she had panendoscopy in March by Dr. Nunez. He referred the patient to hematology. [facility] Past Medical History Hx Anticoagulant Therapy: No Arthritis: Yes Asthma: Yes Autoimmune Disease: No Depression: Yes (AFTER OF ) Cancer: Yes (PRE CA.POLYPS REMOVED.) Cardiovascular Problems: Yes High Cholesterol: No Cerebrovascular Accident: Yes (MULTIPLE) Diminished Hearing: No Endocrine: Yes Gastrointestinal Disorders: Yes GERD: Yes Genitourinary: Yes (ONLY HAS ONE KIDNEY SINCE ) Headaches: Yes Hiatal Hernia: No Immune Disorder: No Musculoskeletal: Yes Neurologic: Yes Psychiatric: Yes Reproductive: Yes (HYSTERECTOMY ) Respiratory: Yes (LUNG WEDGE, FLUID AROUND LEFT LUNG, SPOT ON RIGHT LUNG) Migraines: Yes (CHRONIC HX SINCE CHILDHOOD ) Sickle Cell Disease: No Thyroid Disease: Yes (TAKES MEDS FOR THYROID ISSUES ) Ulcer: No Tetanus Vaccination: < 5 Years Influenza Vaccination: Yes Past Surgical History Abdominal Surgery: Yes (TUMOR REMOVED, COLON RESECTION. ) Section: Yes (X1) Gynecologic Surgery: Yes (HYSTERECTOMY, ) Hysterectomy: Yes Pacemaker: No Thoracic Surgery: Yes ("LUNG WEDGE"- RLL) Other Surgery: Yes Social History Alcohol Use: No Tobacco Use: No Substance Use: No Allergies-Medications (Allergen,Severity, Reaction): Coded Allergies: morphine (Unverified Allergy, Intermediate, hives, 08/10/17) meperidine (Unverified Allergy, Unknown, Swelling, 08/10/17) Reported Meds & Prescriptions Reported Meds & Active Scripts Active Walker/Adult/Folding (Device) 1 Mis Mis 1 Ea .ROUTE DIRECTED Reported Ferrous Sulfate 325 Mg (65 Mg Iron) Tablet 325 Mg PO DAILY Vitamin D-1000 (Cholecalciferol) 1,000 Unit Tab 1,000 Units PO DAILY Vitamin D3 (Cholecalciferol) 1,000 Unit Cap 1,000 Units DAILY Levothyroxine (Levothyroxine Sodium) 25 Mcg Tab 25 Mcg PO DAILY B-12 (Cyanocobalamin) 500 Mcg Subl 500 Mcg SL DAILY Omeprazole 20 Mg Tab 20 Mg PO DAILY Review of Systems Except as stated in HPI: all other systems reviewed are Neg Physical Exam Narrative GENERAL: Well-nourished, well-developed pale white female in NAD. SKIN: Focused skin assessment warm/dry. HEAD: Normocephalic. EYES: No scleral icterus. No injection or drainage. NECK: Supple, trachea midline. No JVD or lymphadenopathy. CARDIOVASCULAR: Regular rate and rhythm without murmurs, gallops, or rubs. RESPIRATORY: Breath sounds clear and equal bilaterally. No accessory muscle use. GASTROINTESTINAL: Abdomen soft, non-tender, nondistended. Active bowel sounds. RECTAL EXAM: No masses or tenderness, stool is brown. Guaiac positive MUSCULOSKELETAL: No cyanosis. Anasarca. BACK: Nontender without obvious deformity. No CVA tenderness. Data Data Last Documented VS Vital Signs Date Time Temp Pulse Resp B/P (MAP) Pulse Ox O2 Delivery O2 Flow Rate FiO2 08/10/17 15:30 80 23 108/59 (75) Room Air 08/10/17 13:15 95 08/10/17 13:11 98.0 Orders Orders Complete Blood Count With Diff (08/10/17 13:49) Comprehensive Metabolic Panel (08/10/17 13:49) Prothrombin Time / Inr (Pt) (08/10/17 13:49) Act Partial Throm Time (Ptt) (08/10/17 13:49) Urinalysis - C+S If Indicated (08/10/17 13:49) Type And Screen (08/10/17 13:49) Red Blood Cells (Rbc) (08/10/17 13:49) Blood Product Administration (08/10/17 13:49) Ecg Monitoring (08/10/17 13:49) Iv Access Insert/Monitor (08/10/17 13:49) Oximetry (08/10/17 13:49) Sodium Chloride 0.9% Flush (Ns Flush) (08/10/17 14:00) Electrocardiogram (08/10/17 ) Chest, Single Ap (08/10/17 ) Pantoprazole Inj (Protonix Inj) (08/10/17 15:30) Calcium Carbonate Chew (Tums Chew) (08/10/17 15:30) Consult Gastroenterology (08/10/17 ) Admit Order (Ed Use Only) (08/10/17 15:31) Labs Laboratory Tests Test 08/10/17 14:00 White Blood Count 13.3 TH/MM3 Red Blood Count 3.17 MIL/MM3 Hemoglobin 5.8 GM/DL Hematocrit 20.4 % Mean Corpuscular Volume 64.4 FL Mean Corpuscular Hemoglobin 18.2 PG Mean Corpuscular Hemoglobin Concent 28.3 % Red Cell Distribution Width 20.3 % Platelet Count 591 TH/MM3 Mean Platelet Volume 7.8 FL Neutrophils (%) (Auto) 78.2 % Lymphocytes (%) (Auto) 11.1 % Monocytes (%) (Auto) 8.8 % Eosinophils (%) (Auto) 0.9 % Basophils (%) (Auto) 1.0 % Neutrophils # (Auto) 10.4 TH/MM3 Lymphocytes # (Auto) 1.5 TH/MM3 Monocytes # (Auto) 1.2 TH/MM3 Eosinophils # (Auto) 0.1 TH/MM3 Basophils # (Auto) 0.1 TH/MM3 CBC Comment AUTO DIFF Differential Comment AUTO DIFF CONFIRMED Platelet Estimate HIGH Platelet Morphology Comment ENLARGED Polychromasia 2.5 % Ovalocytes 1+ Prothrombin Time 10.1 SEC Prothromb Time International Ratio 1.0 RATIO Activated Partial Thromboplast Time 22.2 SEC Urine Color YELLOW Urine Turbidity CLEAR Urine pH 5.5 Urine Specific [place] 1.028 Urine Protein TRACE mg/dL Urine Glucose (UA) NEG mg/dL Urine Ketones TRACE mg/dL Urine Occult Blood NEG Urine Nitrite NEG Urine Bilirubin NEG Urine Urobilinogen 2.0 MG/DL Urine Leukocyte Esterase NEG Urine RBC 1 /hpf Urine WBC 1 /hpf Urine Squamous Epithelial Cells 1 /hpf Urine Hyaline Casts 1 /lpf Urine Mucus MANY /lpf Microscopic Urinalysis Comment CULT NOT INDICATED Blood Urea Nitrogen 19 MG/DL Creatinine 0.48 MG/DL Random Glucose 105 MG/DL Total Protein 4.5 GM/DL Albumin 1.4 GM/DL Calcium Level 7.8 MG/DL Alkaline Phosphatase 101 U/L Aspartate Amino Transf (AST/SGOT) 22 U/L Alanine Aminotransferase (ALT/SGPT) 19 U/L Total Bilirubin 0.2 MG/DL Sodium Level 148 MEQ/L Potassium Level 3.4 MEQ/L Chloride Level 115 MEQ/L Carbon Dioxide Level 22.9 MEQ/L Anion Gap 10 MEQ/L Estimat Glomerular Filtration Rate 127 ML/MIN MDM Medical Decision Making Medical Screen Exam Complete: Yes Emergency Medical Condition: Yes Differential Diagnosis anemia versus metabolic derangement versus GI bleed versus dehydration versus other Narrative Course 72 YO F with PMH of gastric resection presents to the ED for evaluation of low hemoglobin. The patient states that this was discovered by her industrial analyst today. They were drawing labs in preparation for iron infusions. On presentations she endorses CHEN PHAM. She states that she had panendoscopy in March by Dr. Nunez. He referred the patient to hematology. Patient's tachycardic on presentation, BP 112/53. On exam this is a pale, pleasant white female in no acute distress. Chest CTAB. Abdomen soft and nontender. There is anasarca present. Guaiac positive on rectal exam. IV was established. EKG: Rate 88, sinus rhythm. Normal axis. No acute ST changes. Reviewed by Dr. Richard. CXR: No acute disease per radiology read. 08/10/17 14:00 Total Protein 4.5 L, Albumin 1.4 L, Calcium Level 7.8 L, Alkaline Phosphatase 101, Aspartate Amino Transf (AST/SGOT) 22, Alanine Aminotransferase (ALT/SGPT) 19, Total Bilirubin 0.2 Coags: INR 1.0. UA: No culture indicated. Patient was administered 1 g of calcium carbonate by mouth and 40 mg Protonix IV. I discussed the results of the workup with the patient as well as the need for blood product administration and admission to the hospital. She is agreeable to this. 2 units PRBCs ordered pending type and screen. Consult was placed with gastroenterology. Please see medicine and GI notes for disposition. [facility] Point of Care Internal Pos. & Neg. Controls: Passed Fecal Specimen Occult Blood: Positive Gricelda Crump Aug 10, 2017 14:25
[2017-08-10 14:29] LABS: BILIRUBIN, URINE NEG (NEG); BLOOD, URINE NEG (NEG); GLUCOSE,URINE NEG (NEG); HYALINE CAST, URINE 1 /lpf (RARE); KETONE, URINE TRACE mg/dL (NEG); MUCUS URINE MANY /lpf (OCC); NITRITE,URINE NEG (NEG); PH, URINE 5.5 (5.0-8.5); SQUAMOUS EPITHELIAL CELL URINE 1 /hpf (0-5); URINE COLOR YELLOW (YELLW/STRAW); URINE LEUKOCYTE ESTERASE NEG (NEG)
[2017-08-10 14:30] LABS: PROTHROMBIN TIME - PATIENT 10.1 SEC (9.8-11.6)
[2017-08-10 14:34] LABS: AUTOMATED NEUTROPHIL # 10.4 TH/MM3 (1.8-7.7); BASOPHIL # 0.1 TH/MM3 (0-0.2); EOSINOPHIL # 0.1 TH/MM3 (0-0.4); EOSINOPHIL % 0.9 % (0.0-4.0); LYMPH % 11.1 % (9.0-44.0); LYMPHOCYTE # 1.5 TH/MM3 (1.0-4.8); MEAN CELL VOLUME 64.4 FL (80.0-100.0); MEAN CORPUSCULAR HEMOGLOBIN 18.2 PG (27.0-34.0); MEAN PLATELET VOLUME 7.8 FL (7.0-11.0); MONO % 8.8 % (0.0-8.0); MONOCYTE # 1.2 TH/MM3 (0-0.9); NEUT % 78.2 % (16.0-70.0); PLATELET COUNT 591 TH/MM3 (150-450); RED BLOOD COUNT 3.17 MIL/MM3 (4.00-5.30); RED CELL DISTRIBUTION WIDTH 20.3 % (11.6-17.2); WHITE BLOOD COUNT 13.3 TH/MM3 (4.0-11.0)
[2017-08-10 14:36] LABS: MEAN CORPUSCULAR HGB CONC 28.3 % (32.0-36.0)
[2017-08-10 14:38] LABS: ALBUMIN 1.4 GM/DL (3.4-5.0); AST (GOT) 22 U/L (15-37); BICARBONATE 22.9 MEQ/L (21.0-32.0); BLOOD UREA NITROGEN 19 MG/DL (7-18); CALCIUM 7.8 MG/DL (8.5-10.1); CHLORIDE 115 MEQ/L (98-107); CREATININE 0.48 MG/DL (0.50-1.00); GLOMERULAR FILTRATION RATE 127 ML/MIN (>89); GLUCOSE,RANDOM 105 MG/DL (74-106); SODIUM (NA) 148 MEQ/L (136-145)
[2017-08-10 14:39] LABS: ALT (GPT) 19 U/L (10-53); HEMOGLOBIN 5.8 GM/DL (11.6-15.3)
[2017-08-10 14:40] LABS: HEMATOCRIT 20.4 % (35.0-46.0)
[2017-08-10 14:41] LABS: ALKALINE PHOSPHATASE 101 U/L (45-117); TOTAL BILIRUBIN ADULT 0.2 MG/DL (0.2-1.0); TOTAL PROTEIN 4.5 GM/DL (6.4-8.2)
--- NOTE | 2017-08-10 15:22 | RADRPT ---
EXAM DATE/TIME: 08/10/2017 15:05 [place] COMPARISON: CHEST SINGLE AP, July 19, 2016, 18:57. INDICATIONS : Weakness. MEDICAL HISTORY : Stroke. SURGICAL HISTORY : Right lower lobe lung wedge. ENCOUNTER: Initial ACUITY: 1 day PAIN SCORE: 0/10 LOCATION: Bilateral chest FINDINGS: A single view of the chest demonstrates the lungs to be symmetrically aerated without evidence of mas s, infiltrate or effusion. Minimal left basilar scarring. The cardiomediastinal contours are unremar kable. Osseous structures are intact. CONCLUSION: No acute disease. Wally Nix MD on August 10, 2017 at 15:21 Board Certified Radiologist. This report was verified electronically.
[2017-08-10 15:30] VITALS: BP 108/59; PULSE 80; RESP 23
[2017-08-10] MEDS ORDERED: PANTOPRAZOLE SODIUM 40 MG VIAL IV PUSH ONE (15:30)
[2017-08-10] MEDS ORDERED: CALCIUM CARBONATE 500 MG CHEWABLE TAB CHEW ONE (15:30)
[2017-08-10 15:42] LABS: OVALOCYTES 1+ (NORMAL)
[2017-08-10 15:45] LABS: POLYCHROMASIA 2.5 % (0.0-1.9)
[2017-08-10] MEDS ORDERED: CHOL10008 (15:49)
[2017-08-10] MEDS ORDERED: VITA1000 PO (15:49)
[2017-08-10] MEDS ORDERED: FERR325T18 PO (15:49)
[2017-08-10] MEDS ORDERED: LACTULOSE SYRUP 20 GM/30 ML CUP PO PRN (16:00)
[2017-08-10] MEDS ORDERED: MAGNESIUM HYDROXIDE SUSP 30 ML CUP PO PRN (16:00)
[2017-08-10] MEDS ORDERED: SENNOSIDES 8.6 MG TAB PO PRN (16:00)
[2017-08-10] MEDS ORDERED: NALOXONE HCL 0.4 MG/ML AMP IV PUSH PRN (16:00)
[2017-08-10] MEDS ORDERED: ACETAMINOPHEN 325 MG TAB PO PRN (16:00)
[2017-08-10] MEDS ORDERED: ONDANSETRON HCL 4 MG/2 ML VIAL IVP PRN (16:00)
[2017-08-10] MEDS ORDERED: BISACODYL 10 MG SUPP RECTAL PRN (16:00)
[2017-08-10 16:01] VITALS: BP 107/66; PULSE 89; RESP 17; TEMP 98
[2017-08-10 16:15] VITALS: BP 113/59; PULSE 88; RESP 25; TEMP 98.1; O2SAT 94
--- NOTE | 2017-08-10 16:28 | HHI.HP ---
[facility] Unknown Admission Diagnosis anemia, hypoalbuminemia, GI bleed Diagnoses: (1) Anemia (2) GI bleed Chief Complaint: Low hemoglobin Travel History International Travel<30 Days: No Contact w/Intl Traveler <30 Da: No Traveled to Known Affected Are: No History of Present Illness Patient is a 72-year-old female with history of partial gastrectomy who presented to the emergency department for evaluation of low hemoglobin. Her fire truck driver check labs as an outpatient and found her hemoglobin to be 5.8. She was referred to the ER for further evaluation. Patient has a history of anemia and iron deficiency secondary to poor absorption from her prior stomach surgery. She reports fatigue and weakness. 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 Denies chest pain. She reports that her carton stamper, Dr. Nunez, performed panendoscopy in March and referred the patient to hematology at that time. Review of Systems Constitutional: COMPLAINS OF: Fatigue, DENIES: Fever, Chills, Night Sweats Eyes: DENIES: Blurred vision, Vision loss Ears, nose, mouth, throat: DENIES: Hearing loss Respiratory: COMPLAINS OF: Shortness of breath, DENIES: Cough, Wheezing, Sputum production Cardiovascular: DENIES: Chest pain, Palpitations, Dyspnea on Exertion, Lower Extremity Edema Gastrointestinal: DENIES: Abdominal pain, Bloody stools, Constipation, Diarrhea , Nausea, Vomiting Genitourinary: DENIES: Urinary frequency, Urinary incontinence, Urgency, Hematuria, Dysuria, Nocturia Musculoskeletal: DENIES: Joint pain, Muscle aches Integumentary: DENIES: Pruritus, Rash Hematologic/lymphatic: DENIES: Bruising Neurologic: DENIES: Headache Past Family Social History Past Medical History Arthritis Asthma History of depression History of multiple CVAs GERD Hypothyroidism Past Surgical History Partial colon resection section Hysterectomy Lung wedge, right lower lobe Reported Medications Ferrous Sulfate 325 Mg (65 Mg Iron) Tablet 325 Mg PO DAILY Vitamin D-1000 (Cholecalciferol) 1,000 Unit Tab 1,000 Units PO DAILY Vitamin D3 (Cholecalciferol) 1,000 Unit Cap 1,000 Units DAILY Levothyroxine (Levothyroxine Sodium) 25 Mcg Tab 25 Mcg PO DAILY B-12 (Cyanocobalamin) 500 Mcg Subl 500 Mcg SL DAILY Omeprazole 20 Mg Tab 20 Mg PO DAILY Allergies: Coded Allergies: morphine (Unverified Allergy, Intermediate, hives, 08/10/17) meperidine (Unverified Allergy, Unknown, Swelling, 08/10/17) Family History Heart disease Social History Denies alcohol, tobacco, or illicit drug use. Physical Exam Vital Signs Vital Signs Date Time Temp Pulse Resp B/P (MAP) Pulse Ox O2 Delivery O2 Flow Rate FiO2 08/10/17 16:01 98.0 89 17 107/66 08/10/17 15:30 80 23 108/59 (75) Room Air 08/10/17 13:15 100 20 95 08/10/17 13:11 98.0 105 20 112/53 (72) 95 Physical Exam GENERAL: Pale elderly female in no acute distress. HEENT: Normocephalic, atraumatic. Pupils equal, round and reactive. Extraocular movements intact. No scleral icterus. No injection or drainage. Oropharynx is clear. Mucous membranes are moist. CARDIOVASCULAR: Regular rate and rhythm. 2/6 systolic murmur. RESPIRATORY: Clear to auscultation. No wheezes, rales, or rhonchi. Breathing is non-labored. GASTROINTESTINAL: Abdomen soft, non-tender, nondistended. EXTREMITIES: 1+ bilateral lower extremity edema. No calf tenderness. PSYCH: Alert and oriented x 3. Laboratory Laboratory Tests Test 08/10/17 14:00 White Blood Count 13.3 Red Blood Count 3.17 Hemoglobin 5.8 Hematocrit 20.4 Mean Corpuscular Volume 64.4 Mean Corpuscular Hemoglobin 18.2 Mean Corpuscular Hemoglobin Concent 28.3 Red Cell Distribution Width 20.3 Platelet Count 591 Mean Platelet Volume 7.8 Neutrophils (%) (Auto) 78.2 Lymphocytes (%) (Auto) 11.1 Monocytes (%) (Auto) 8.8 Eosinophils (%) (Auto) 0.9 Basophils (%) (Auto) 1.0 Neutrophils # (Auto) 10.4 Lymphocytes # (Auto) 1.5 Monocytes # (Auto) 1.2 Eosinophils # (Auto) 0.1 Basophils # (Auto) 0.1 CBC Comment AUTO DIFF Differential Comment AUTO DIFF CONFIRMED Platelet Estimate HIGH Platelet Morphology Comment ENLARGED Polychromasia 2.5 Ovalocytes 1+ Prothrombin Time 10.1 Prothromb Time International Ratio 1.0 Activated Partial Thromboplast Time 22.2 Urine Color YELLOW Urine Turbidity CLEAR Urine pH 5.5 Urine Specific [place] 1.028 Urine Protein TRACE Urine Glucose (UA) NEG Urine Ketones TRACE Urine Occult Blood NEG Urine Nitrite NEG Urine Bilirubin NEG Urine Urobilinogen 2.0 Urine Leukocyte Esterase NEG Urine RBC 1 Urine WBC 1 Urine Squamous Epithelial Cells 1 Urine Hyaline Casts 1 Urine Mucus MANY Microscopic Urinalysis Comment CULT NOT INDICATED Blood Urea Nitrogen 19 Creatinine 0.48 Random Glucose 105 Total Protein 4.5 Albumin 1.4 Calcium Level 7.8 Alkaline Phosphatase 101 Aspartate Amino Transf (AST/SGOT) 22 Alanine Aminotransferase (ALT/SGPT) 19 Total Bilirubin 0.2 Sodium Level 148 Potassium Level 3.4 Chloride Level 115 Carbon Dioxide Level 22.9 Anion Gap 10 Estimat Glomerular Filtration Rate 127 Result Diagram: 08/10/17 1400 08/10/17 1400 Imaging Last Impressions Chest X-Ray 08/10/17 0000 Signed Impressions: Service Date/Time: August 15:05 - CONCLUSION: No acute disease. Wally Nix MD Caperin VTE Risk Assessment Caprini VTE Risk Assessment: Mod/High Risk (score >= 2) VTE Pharm Contraindication: High risk for bleeding Caprini Risk Assessment Model Point Value = 1 Point Value = 2 Point Value = 3 Point Value = 5 Age 41-60 Minor surgery BMI > 25 kg/m2 Swollen legs Varicose veins or History of unexplained or recurrent spontaneous Oral contraceptives or hormone replacement Sepsis (< 1 month) Serious lung disease, including pneumonia (< 1 month) Abnormal pulmonary function Acute myocardial infarction Congestive heart failure (< 1 month) History of inflammatory bowel disease Medical patient at bed rest Age 61-74 Arthroscopic surgery Major open surgery (> 45 min) Laparoscopic surgery (> 45 min) Malignancy Confined to bed (> 72 hours) Immobilizing plaster cast Central venous access Age >= 75 History of VTE Family history of VTE Factor V Leiden Prothrombin [id number] Lupus anticoagulant Anticardiolipin antibodies Elevated serum homocysteine Heparin-induced thrombocytopenia Other congenital or acquired thrombophilia Stroke (< 1 month) Elective arthroplasty Hip, pelvis, or leg fracture Acute spinal cord injury (< 1 month) Prophylaxis Regimen Total Risk Factor Score Risk Level Prophylaxis Regimen 0-1 Low Early ambulation 2 Moderate Order ONE of the following: *Sequential Compression Device (SCD) *Heparin 5000 units SQ BID 3-4 Higher Order ONE of the following medications: *Heparin 5000 units SQ TID *Enoxaparin/Lovenox 40 mg SQ daily (WT < 150 kg, CrCl > 30 mL/min) *Enoxaparin/Lovenox 30 mg SQ daily (WT < 150 kg, CrCl > 10-29 mL/min) *Enoxaparin/Lovenox 30 mg SQ BID (WT < 150 kg, CrCl > 30 mL/min) AND/OR *Sequential Compression Device (SCD) 5 or more Highest Order ONE of the following medications: *Heparin 5000 units SQ TID (Preferred with Epidurals) *Enoxaparin/Lovenox 40 mg SQ daily (WT < 150 kg, CrCl > 30 mL/min) *Enoxaparin/Lovenox 30 mg SQ daily (WT < 150 kg, CrCl > 10-29 mL/min) *Enoxaparin/Lovenox 30 mg SQ BID (WT < 150 kg, CrCl > 30 mL/min) AND *Sequential Compression Device (SCD) Assessment and Plan Assessment and Plan 1. Symptomatic anemia: Patient noted by her fire truck driver to have hemoglobin 5.8. She was referred to the ER for further workup. Transfusion of 2 units PRBCs has been ordered. Consult hematology. Patient has history of iron deficiency anemia and was to have iron infusions as an outpatient. Monitor H&H. 2. GI bleed: Stool is heme positive. Consult patient's carton stamper. She reportedly had endoscopy done in March 2017. Continue PPI. 3. Hypothyroidism: Continue Synthroid. 4. Mild hypokalemia: Supplement potassium in IV fluids. 5. DVT prophylaxis: SCDs, KAREN hose. Chemical prophylaxis contraindicated secondary to symptomatic anemia, GI bleed. Carlos Navarro MD Aug 10, 2017 16:28
--- NOTE | 2017-08-10 16:48 | PD.CONS ---
HPI History of Present Illness This is a 72 year old F with PMH significant for pulmonary HTN, GERD, uterine cancer S/P hysterectomy, anemia, and multiple gastric/colon polyps requiring her to have partial gastrectomy and partial colectomy in January 2015. Pt is a poor historian, most of the history obtained from the daughter Ale via telephone. Unable to access office records from hospital computers, will request records. Pt went to her document design specialist for an initial consult today to be started on iron transfusion, however, he sent her to the ER for evaluation of severely low H/H. Pt has history of anemia and has been taking oral iron supplements for some time, recently changed about a week and a half ago. Per pt she has been having multiple episodes of diarrhea since the iron supplements have been changed. The stool is watery and black, the color is not new and has been this way since being started on initial iron supplementation. Pt reports acid reflux, not well controlled with Omeprazole. Denies dysphagia, abdominal pain, vomiting. Pt denies nausea, however, per daughter she is occasionally nauseous. Pt reports 67 pound weight loss since partial gastrectomy/colectomy surgery almost two years ago. Pt had the surgery done at [facility], per daughter, they have cleared her. Pt denies ETOH, smoking, NSAIDs, taking blood thinners. Last panendoscopy done in March of last year, she states findings revealed polyps, will obtain records. (Carmen García) PFSH Past Medical History Pulmonary HTN anemia Uterina cancer S/P hysterectomy Renal agenesis Colon/gastric polyps Past Surgical History Partial colectomy Partial gastrectomy EGD Colonoscopy Wedge resection of lung Hysterectomy (Carmen García) Coded Allergies: morphine (Unverified Allergy, Intermediate, hives, 08/10/17) meperidine (Unverified Allergy, Unknown, Swelling, 08/10/17) Social History Denies ETOH Denies smoking (Carmen García) Review of Systems Gastrointestinal: COMPLAINS OF: Black stools, Diarrhea, Nausea, Heartburn, DENIES: Abdominal pain, Bloody stools, Constipation, Vomiting, Difficulty Swallowing, Anorexia, Odynophagia, Swelling of Abdomen, Hematemesis (Carmen García) GI Exam Vitals I&O Vital Signs Date Time Temp Pulse Resp B/P (MAP) Pulse Ox O2 Delivery O2 Flow Rate FiO2 08/10/17 16:01 98.0 89 17 107/66 08/10/17 15:30 80 23 108/59 (75) Room Air 08/10/17 13:15 100 20 95 08/10/17 13:11 98.0 105 20 112/53 (72) 95 I/O 08/09/17 08/09/17 08/09/17 08/10/17 08/10/17 08/10/17 06:59 14:59 22:59 06:59 14:59 22:59 Intake Total 15 ml Balance 15 ml Intake Blood Product IV Normal Saline Flush 15 ml Imaging Last Impressions Chest X-Ray 08/10/17 0000 Signed Impressions: Service Date/Time: August 15:05 - CONCLUSION: No acute disease. Wally Nix MD Laboratory Test 08/10/17 14:00 White Blood Count 13.3 TH/MM3 Red Blood Count 3.17 MIL/MM3 Hemoglobin 5.8 GM/DL Hematocrit 20.4 % Mean Corpuscular Volume 64.4 FL Mean Corpuscular Hemoglobin 18.2 PG Mean Corpuscular Hemoglobin Concent 28.3 % Red Cell Distribution Width 20.3 % Platelet Count 591 TH/MM3 Mean Platelet Volume 7.8 FL Neutrophils (%) (Auto) 78.2 % Lymphocytes (%) (Auto) 11.1 % Monocytes (%) (Auto) 8.8 % Eosinophils (%) (Auto) 0.9 % Basophils (%) (Auto) 1.0 % Neutrophils # (Auto) 10.4 TH/MM3 Lymphocytes # (Auto) 1.5 TH/MM3 Monocytes # (Auto) 1.2 TH/MM3 Eosinophils # (Auto) 0.1 TH/MM3 Basophils # (Auto) 0.1 TH/MM3 CBC Comment AUTO DIFF Differential Comment AUTO DIFF CONFIRMED Platelet Estimate HIGH Platelet Morphology Comment ENLARGED Polychromasia 2.5 % Ovalocytes 1+ Prothrombin Time 10.1 SEC Prothromb Time International Ratio 1.0 RATIO Activated Partial Thromboplast Time 22.2 SEC Urine Color YELLOW Urine Turbidity CLEAR Urine pH 5.5 Urine Specific [place] 1.028 Urine Protein TRACE mg/dL Urine Glucose (UA) NEG mg/dL Urine Ketones TRACE mg/dL Urine Occult Blood NEG Urine Nitrite NEG Urine Bilirubin NEG Urine Urobilinogen 2.0 MG/DL Urine Leukocyte Esterase NEG Urine RBC 1 /hpf Urine WBC 1 /hpf Urine Squamous Epithelial Cells 1 /hpf Urine Hyaline Casts 1 /lpf Urine Mucus MANY /lpf Microscopic Urinalysis Comment CULT NOT INDICATED Blood Urea Nitrogen 19 MG/DL Creatinine 0.48 MG/DL Random Glucose 105 MG/DL Total Protein 4.5 GM/DL Albumin 1.4 GM/DL Calcium Level 7.8 MG/DL Alkaline Phosphatase 101 U/L Aspartate Amino Transf (AST/SGOT) 22 U/L Alanine Aminotransferase (ALT/SGPT) 19 U/L Total Bilirubin 0.2 MG/DL Sodium Level 148 MEQ/L Potassium Level 3.4 MEQ/L Chloride Level 115 MEQ/L Carbon Dioxide Level 22.9 MEQ/L Anion Gap 10 MEQ/L Estimat Glomerular Filtration Rate 127 ML/MIN Physical Examination HEENT: Normocephalic; atraumatic CHEST: Even/unlabored CARDIAC: RRR ABDOMEN: Soft, nondistended, nontender; bowel sounds active EXTREMITIES: BLE edema SKIN: Pale PORTFOLIO MGR: Alert and oriented x 3 (Carmen García) Assessment and Plan Plan Assessment: - Anemia, microcytic- history of anemia- receiving oral iron supplement at home, seen by document design specialist for first time today to be started on iron transfusions, was sent to ER for severely low H/H. Currently 5.8/20.4. (+) nausea, no emesis. (+) heartburn, not controlled by Omeprazole. Last panendoscopy in Mar 2017, done by our service in office, will obtain records. Denies ETOH, smoking, NSAIDs, blood thinners. - Diarrhea- chronic since having partial gastrectomy/partial colectomy in 2014 but increasing in frequency since iron supplements changed a week and a half ago. Reports black stools, not new, started when she was started on iron supplements. - History of partial gastrectomy/partial colectomy at [facility] in January 2015 , daughter reports indication was excessive polyps causing obstruction. Will obtain office records. - Congenital renal agenesis Addendum: Office records reviewed -->S/P distal gastrectomy with Hurt anastomosis. Distal stomach and omentum resection: multiple polyps with hamartomatous/hyperplastic features measuring from 1.0 to 7.0 cm dimension. The largest polyp shows low-grade dysplasia and multiple foci of high-grade dysplasia. Focal low-grade dysplasia also seen in one additional polyp. Negative for invasive carcinoma, surgical margins negative for dysplasia. EGD (Mar 2017) --> Distal part of stomach resected. Multiple large polyps in the stomach with polypoid mass in junction from stomach to duodenum. Pathology --> acute gastritis. Many acute inflammatory cells with demes in lamina propia. Colonoscopy (Mar 2017) -->Colon polyp in transverse colon, colon polyp in descending colon, colon polyps x 3 in sigmoid colon, 1 cm polyp rectum. Polyps benign. Plan: EGD/colonoscopy tomorrow Obtain consent Clear liquids today GoLytely prep NPO after MN Serial H/H Transfuse as needed 2 U PRBCs ordered by attending-1 transfusing Protonix Stool studies Further recommendations based on results of above Pt has been seen and examined by myself and Dr. Nunez and this note is written on his behalf (Carmen García) Plan patient was seen and examined, agree with above note, plan to have enteroscopy and colonoscopy in am, most likely AVM (Liborio Nunez MD) Carmen García Aug 10, 2017 16:48 Liborio Nunez MD Aug 10, 2017 18:34
[2017-08-10] MEDS ORDERED: PEG (High)/E-LYTE SOLN 4000 ML BTL PO ONE (17:00)
[2017-08-10 18:02] VITALS: BP 110/63; PULSE 82; RESP 26; TEMP 98.4; O2SAT 96
[2017-08-10] MEDS: 1/2 NS + KCL 20 MEQ INJ 1,000 ML IV SCH (19:50)
[2017-08-10] MEDS: DOCUSATE SODIUM 50 MG/SENNA 8.6 MG TAB PO SCH (19:51)
[2017-08-10 20:00] VITALS: BP 107/65; PULSE 90; RESP 18; TEMP 98.4; O2SAT 93
--- NOTE | 2017-08-10 21:45 | MB ---
cc: Sandra Resendiz MD , , Ramon,Carlos Sierra MD DATE OF CONSULT: 08/10/2017 REFERRING PHYSICIAN: Carlos Navarro CHIEF COMPLAINT: Dr. Navarro requested consultation for Mrs. Chow regarding symptomatic anemia. HISTORY OF PRESENT ILLNESS: Mrs. Chow is a 72-year-old woman with multiple medical problems. She has a history of arthritis, asthma, depression, being recently , cardiovascular disease, multiple strokes, gastroesophageal reflux, headaches. She has had multiple abdominal surgeries coordinated at [facility] in [place]. By report, she has had distal part of the stomach resected. She has had part of the colon resected in 2014. Since then, she has had malabsorption problems. It became apparent most recently in the last several months. Mrs. Chow had established herself with a new primary physician. She is established with our cold press loader and with [facility] in [place]. She is under the care of press tender long goods/oncologist in [place] and was working up her anemia. She was scheduled for parenteral iron therapy when she was found to have a hemoglobin of 5.8. At that point, she was advised to go to the hospital for a blood transfusion. Since they live closer to [place], her daughter brought her into [place]. On admission, her hemoglobin was 5.8, MCV was 64.4, platelet count 591 and a white blood cell count of 13.3. Mrs. Chow denies any overt bleeding. No melena. No bright red blood per rectum. She has had difficulty with fatigue symptoms. Her daughter reports her having congestive heart failure from the severe anemia. She denies any hematuria. There seems to be no other bleeding. She has other nutritional deficiency such as vitamin D deficiency. Serum B12 level is not available. Nutrition-mcfarlane, she seems to have suffered as well by her daughter. Hematology/oncology is consulted for the anemia. Review of the electronic medical record shows anemia even dating back to 2013 where she has a hemoglobin of 5. She had a normal hemoglobin 08/16/2016. She has had previous blood transfusions before in 2013 during that hemoglobin of 5. She is receiving a blood transfusion now without any event. She denies any chest pain or shortness of breath. PAST MEDICAL HISTORY: Arthritis, asthma, gastroesophageal reflux disease, multiple CVA, depression, hypothyroidism, nutritional deficiency, vitamin D deficiency, iron deficiency anemia. PAST SURGICAL HISTORY: Partial colon resection, C section, hysterectomy, lung wedge resection right lower lobe, gastric resection. FAMILY HISTORY: No significant family history of blood problems. There is heart disease in the family and her father in his 40s. SOCIAL HISTORY: She lives alone but right next to her daughter who has built a house next to her house. She denies alcohol, tobacco, or illicit drug use. ALLERGIES: MORPHINE AND CURRENT MEDICATIONS: Include Protonix, Guadalupe-Colace, Zofran p.r.n., Senokot, milk of magnesia, lactulose. PHYSICAL EXAMINATION: VITAL SIGNS: Temperature 98.4, heart rate 82, respiratory rate 16, blood pressure 110/63, saturation 96%. GENERAL: Mrs. Chow is an elderly, well-developed, pale-appearing woman in no acute distress. She seems to twitch intermittently. HEENT: Her pupils are round, reactive to light and accommodation. Oropharynx is clear. Conjunctivae is pale. NECK: Supple with no adenopathy. LUNGS: Clear. CARDIOVASCULAR: Reveals a normal rate, rhythm. ABDOMEN: Benign. EXTREMITIES: Multiple scars lower extremities with no edema. NEUROLOGIC: Nonfocal. LABORATORY DATA: With hemoglobin of 5.8. ASSESSMENT AND PLAN: Mrs. Chow is a 72-year-old woman with multiple medical problems. It appears she has had abdominal surgery, partial gastrectomy, colectomy that resulted in nutritional deficiency. She has evidence of vitamin D deficiency with a vitamin D of 8.5. She has known iron deficiency, but is pending parenteral iron therapy. I will check serum B12 level. Ferritin will be checked; however, this is evident from her press tender long goods. Plan to proceed with parenteral iron therapy. I will defer additional blood transfusion pending on her hemoglobin tomorrow. With iron therapy, it is likely that she will respond and not need additional blood transfusions. She can complete the additional iron needed per press tender long goods's office. I defer from bone marrow evaluation and workup. Ideally, the nutritional deficiency should be corrected first. If she is still anemic, we can consider possibility of a bone marrow disorder. LDH will be checked. Peripheral smear will be reviewed. There seems to be no evidence for microangiopathic hemolytic process. The above history is pretty much consistent with nutritional deficiency. She will be evaluated by gastroenterology and further recommendations to follow. We will monitor for any overt bleeding. MD FRANCESCO Alford/radhames , 09:08 PM , 09:43 PM
[2017-08-10] MEDS ORDERED: MAGNESIUM CITRATE SOLN 300 ML BTL PO ONE (22:00)
[2017-08-11] VITALS: BP 106/66; PULSE 78; RESP 20; TEMP 96.8; O2SAT 96
[2017-08-11] MEDS ORDERED: MAGNESIUM CITRATE SOLN 300 ML BTL PO ONE
[2017-08-11 00:19] LABS: HEMATOCRIT 27.5 % (35.0-46.0); HEMOGLOBIN 8.8 GM/DL (11.6-15.3)
[2017-08-11 04:00] VITALS: BP 116/71; PULSE 82; RESP 22; TEMP 96.3; O2SAT 95
[2017-08-11 05:03] LABS: BASOPHIL # 0.2 TH/MM3 (0-0.2); BASOPHIL % 1.8 % (0.0-2.0); EOSINOPHIL # 0.2 TH/MM3 (0-0.4); LYMPH % 11.9 % (9.0-44.0); MEAN CELL VOLUME 70.4 FL (80.0-100.0); MEAN CORPUSCULAR HEMOGLOBIN 22.6 PG (27.0-34.0); MEAN CORPUSCULAR HGB CONC 32.2 % (32.0-36.0); MEAN PLATELET VOLUME 7.9 FL (7.0-11.0); MONO % 15.1 % (0.0-8.0); MONOCYTE # 1.3 TH/MM3 (0-0.9); NEUT % 69.2 % (16.0-70.0); PLATELET COUNT 452 TH/MM3 (150-450); RED BLOOD COUNT 3.98 MIL/MM3 (4.00-5.30); RED CELL DISTRIBUTION WIDTH 24.8 % (11.6-17.2); WHITE BLOOD COUNT 8.7 TH/MM3 (4.0-11.0)
[2017-08-11 05:07] LABS: RETIC # 75.9 MIL/L (20.0-150.0); RETIC % 1.9 % (0.4-3.0)
[2017-08-11 05:55] LABS: % SATURATION IRON PROFILE 4.8 % (20-50); BICARBONATE 24.4 MEQ/L (21.0-32.0); BLOOD UREA NITROGEN 16 MG/DL (7-18); CHLORIDE 115 MEQ/L (98-107); CREATININE 0.39 MG/DL (0.50-1.00); FERRITIN 6 NG/ML (8-252); GLOMERULAR FILTRATION RATE 161 ML/MIN (>89); GLUCOSE,RANDOM 81 MG/DL (74-106); IRON (FE) 13 MCG/DL (50-170); SODIUM (NA) 146 MEQ/L (136-145); TOTAL IRON BINDING CAPACITY 270 MCG/DL (250-450)
[2017-08-11 06:11] LABS: CALCIUM 7.4 MG/DL (8.5-10.1)
[2017-08-11 06:51] LABS: TOTAL PROTEIN 4.4 GM/DL (6.4-8.2)
[2017-08-11 08:00] VITALS: BP 114/62; PULSE 77; RESP 17; TEMP 96.3; O2SAT 93
[2017-08-11] MEDS: PANTOPRAZOLE SODIUM 40 MG VIAL IV PUSH SCH (08:07)
[2017-08-11] MEDS: CHOLECALCIFEROL (VIT D3) 5000 UNIT CAP PO SCH (08:07)
[2017-08-11] MEDS: FOLIC ACID 1 MG TAB PO SCH (08:07)
[2017-08-11] MEDS: DOCUSATE SODIUM 50 MG/SENNA 8.6 MG TAB PO SCH ×2 (08:09→21:00)
[2017-08-11] MEDS ORDERED: CYANOCOBALAMIN 1000 MCG/ML VIAL IM ONE (09:00)
--- NOTE | 2017-08-11 10:12 | PD.ONC.PN ---
Subjective Subjective Remarks Afebrile overnight. Patient resting in bed in nad. No complaints. getting ready to go downstairs for procedure. daughter at bedside. Objective Data Date Time Temp Pulse Resp B/P (MAP) Pulse Ox O2 Delivery O2 Flow Rate FiO2 08/11/17 08:00 96.3 77 17 114/62 (79) 93 08/11/17 04:00 96.3 82 22 116/71 (86) 95 08/11/17 00:00 96.8 78 20 106/66 (79) 96 08/10/17 20:00 98.4 90 18 107/65 (79) 93 08/10/17 18:46 08/10/17 18:02 98.4 82 26 110/63 (79) 96 Room Air 08/10/17 16:15 98.1 88 25 113/59 94 08/10/17 16:01 98.0 89 17 107/66 08/10/17 15:30 80 23 108/59 (75) Room Air 08/10/17 13:15 100 20 95 08/10/17 13:11 98.0 105 20 112/53 (72) 95 08/11/17 08/11/17 08/11/17 07:00 15:00 23:00 Intake Total 400 ml Balance 400 ml Result Diagram: 08/11/17 0405 08/11/17 0405 Laboratory Results Laboratory Tests Test 08/10/17 14:00 08/10/17 23:22 08/11/17 02:30 08/11/17 04:05 White Blood Count 13.3 TH/MM3 8.7 TH/MM3 Red Blood Count 3.17 MIL/MM3 3.98 MIL/MM3 Hemoglobin 5.8 GM/DL 8.8 GM/DL 9.0 GM/DL Hematocrit 20.4 % 27.5 % 28.0 % Mean Corpuscular Volume 64.4 FL 70.4 FL Mean Corpuscular Hemoglobin 18.2 PG 22.6 PG Mean Corpuscular Hemoglobin Concent 28.3 % 32.2 % Red Cell Distribution Width 20.3 % 24.8 % Platelet Count 591 TH/MM3 452 TH/MM3 Mean Platelet Volume 7.8 FL 7.9 FL Neutrophils (%) (Auto) 78.2 % 69.2 % Lymphocytes (%) (Auto) 11.1 % 11.9 % Monocytes (%) (Auto) 8.8 % 15.1 % Eosinophils (%) (Auto) 0.9 % 2.0 % Basophils (%) (Auto) 1.0 % 1.8 % Neutrophils # (Auto) 10.4 TH/MM3 6.0 TH/MM3 Lymphocytes # (Auto) 1.5 TH/MM3 1.0 TH/MM3 Monocytes # (Auto) 1.2 TH/MM3 1.3 TH/MM3 Eosinophils # (Auto) 0.1 TH/MM3 0.2 TH/MM3 Basophils # (Auto) 0.1 TH/MM3 0.2 TH/MM3 CBC Comment AUTO DIFF DIFF FINAL Differential Comment AUTO DIFF CONFIRMED Platelet Estimate HIGH Platelet Morphology Comment ENLARGED Polychromasia 2.5 % Ovalocytes 1+ Prothrombin Time 10.1 SEC Prothromb Time International Ratio 1.0 RATIO Activated Partial Thromboplast Time 22.2 SEC Urine Color YELLOW Urine Turbidity CLEAR Urine pH 5.5 Urine Specific [place] 1.028 Urine Protein TRACE mg/dL Urine Glucose (UA) NEG mg/dL Urine Ketones TRACE mg/dL Urine Occult Blood NEG Urine Nitrite NEG Urine Bilirubin NEG Urine Urobilinogen 2.0 MG/DL Urine Leukocyte Esterase NEG Urine RBC 1 /hpf Urine WBC 1 /hpf Urine Squamous Epithelial Cells 1 /hpf Urine Hyaline Casts 1 /lpf Urine Mucus MANY /lpf Microscopic Urinalysis Comment CULT NOT INDICATED Blood Urea Nitrogen 19 MG/DL 16 MG/DL Creatinine 0.48 MG/DL 0.39 MG/DL Random Glucose 105 MG/DL 81 MG/DL Total Protein 4.5 GM/DL 4.4 GM/DL Albumin 1.4 GM/DL Calcium Level 7.8 MG/DL 7.4 MG/DL Alkaline Phosphatase 101 U/L Aspartate Amino Transf (AST/SGOT) 22 U/L Alanine Aminotransferase (ALT/SGPT) 19 U/L Total Bilirubin 0.2 MG/DL Sodium Level 148 MEQ/L 146 MEQ/L Potassium Level 3.4 MEQ/L 3.4 MEQ/L Chloride Level 115 MEQ/L 115 MEQ/L Carbon Dioxide Level 22.9 MEQ/L 24.4 MEQ/L Anion Gap 10 MEQ/L 7 MEQ/L Estimat Glomerular Filtration Rate 127 ML/MIN 161 ML/MIN Stool C. difficile Toxin (PCR) NEGATIVE Stl C. difficile Toxin Epiderm 027 PRESUMPTIVE NEGATIVE Reticulocyte Count 1.9 % Absolute Reticulocyte Count 75.9 MIL/L Lactate Dehydrogenase 230 U/L Protein Corrected Calcium 9.0 MG/DL Iron Level 13 MCG/DL Total Iron Binding Capacity 270 MCG/DL Percent Iron Saturation 4.8 % Ferritin 6 NG/ML Vitamin B12 Level 719 PG/ML Folate 14.0 NG/ML Culture Results Microbiology Date/Time Source Procedure Growth Status 08/11/17 02:30 Stool Stool Cryptosporidium Exam Pending Received 08/11/17 02:30 Stool Stool Giardia Antigen (NANCY) Pending Received 08/11/17 02:30 Stool Stool Pending Received Administered Medications Medications (Trade) Dose Ordered Sig/[place] Route PRN Reason Start Time Stop Time Status Last Admin Dose Admin Senna/Docusate Sodium (Guadalupe-Colace) 1 tab BID PO 08/10/17 21:00 08/10/17 19:51 Potassium Chloride/Sodium Chloride 1,000 ml @ 70 mls/hr [id number] IV 08/10/17 16:00 08/10/17 19:50 Pantoprazole Sodium (Protonix Inj) 40 mg Q24H IV PUSH 08/11/17 09:00 08/11/17 08:07 Folic Acid (Folate) 1 mg DAILY PO 08/11/17 09:00 08/11/17 08:07 Cholecalciferol (Vitamin D3) 5,000 units DAILY PO 08/11/17 09:00 08/11/17 08:07 Objective Remarks GENERAL: Elderly female sitting up in bed in [facility]. SKIN: Warm and dry. HEAD: Normocephalic. EYES: no injection or drainage. NECK: Supple, trachea midline. CARDIOVASCULAR: Regular rate and rhythm RESPIRATORY: Breath sounds equal bilaterally. No accessory muscle use. GASTROINTESTINAL: Abdomen soft, non-tender, nondistended. EXTREMITIES: No cyanosis. ble 2+edema NEUROLOGICAL: awake and alert. normal speech. moving all extremities Assessment/Plan Problem List: (1) Severe anemia ICD Codes: D64.9 - Anemia, unspecified Plan: --++iron deficiency anemia, will need regular iron transfusions outpatient. --has had abdominal surgery, partial gastrectomy, colectomy that resulted in nutritional deficiency. --has evidence of vitamin D deficiency with a vitamin D of 8.5. --has known iron deficiency, but is pending parenteral iron therapy. --follows with [facility] Assessment 72y/o female with symptomatic anemia. history of arthritis, asthma, depression, cardiovascular disease, CHF, multiple strokes, gastroesophageal reflux, headaches. distal part of the stomach resected. part of the colon resected in 2014. Since then, she has had malabsorption problems. Plan 1. monitor CBC while inpatient, transfuse as needed. 2. once discharged, follow up with [facility] for regular iron transfusions. Attending Statement The exam, history, and the medical decision-making described in the above note were completed with the assistance of the mid-level provider. I reviewed and agree with the findings presented. I attest that I had a [id number] encounter with the patient on the same day, and personally performed and documented my assessment and findings in the medical record. Pt seen and examined. Hgb improved 9.0, noted endoscopy results AVM treated, still NPO. Discussed that she will need to follow up with her truck hop when DC to complete iron therapy. Follow for now, transfuse for symptoms or acute bleeding. Anjali Benton Aug 11, 2017 10:12 Sandra Resendiz MD Aug 11, 2017 18:03
--- NOTE | 2017-08-11 11:09 | HHI.PR ---
Subjective Remarks Follow-up symptomatic anemia/GI bleeding/iron deficiency anemia 08/11/17-patient seen and examined, she was transfused 2 units packed red blood cell with improvement of H&H, denies any chest pain or shortness of breath this morning. Plan for panendoscopy. Objective Vitals Vital Signs Date Time Temp Pulse Resp B/P (MAP) Pulse Ox O2 Delivery O2 Flow Rate FiO2 08/11/17 08:00 96.3 77 17 114/62 (79) 93 08/11/17 04:00 96.3 82 22 116/71 (86) 95 08/11/17 00:00 96.8 78 20 106/66 (79) 96 08/10/17 20:00 98.4 90 18 107/65 (79) 93 08/10/17 18:46 08/10/17 18:02 98.4 82 26 110/63 (79) 96 Room Air 08/10/17 16:15 98.1 88 25 113/59 94 08/10/17 16:01 98.0 89 17 107/66 08/10/17 15:30 80 23 108/59 (75) Room Air 08/10/17 13:15 100 20 95 08/10/17 13:11 98.0 105 20 112/53 (72) 95 I/O 08/10/17 08/10/17 08/10/17 08/11/17 08/11/17 08/11/17 07:00 15:00 23:00 07:00 15:00 23:00 Intake Total 340 ml 400 ml Balance 340 ml 400 ml Intake Packed Cells 325 ml 400 ml Blood Product IV Normal Saline Flush 15 ml # Voids 6 # Bowel Movements 6 Result Diagram: 08/11/17 0405 08/11/17 0405 Imaging Last Impressions Chest X-Ray 08/10/17 0000 Signed Impressions: Service Date/Time: August 15:05 - CONCLUSION: No acute disease. Wally Nix MD Objective Remarks GENERAL: NAD SKIN: Warm and dry. HEAD: Normocephalic. EYES: No scleral icterus. No injection or drainage. NECK: Supple, trachea midline. No JVD or lymphadenopathy. CARDIOVASCULAR: Regular rate and rhythm without murmurs, gallops, or rubs. RESPIRATORY: Breath sounds equal bilaterally. No accessory muscle use. GASTROINTESTINAL: Abdomen soft, non-tender, nondistended. MUSCULOSKELETAL: No cyanosis, or edema. BACK: Nontender without obvious deformity. No CVA tenderness. A/P Problem List: (1) Anemia ICD Code: D64.9 - Anemia, unspecified (2) GI bleed ICD Code: K92.2 - Gastrointestinal hemorrhage, unspecified Assessment and Plan 72-year-old female with 1. Symptomatic anemia GI bleeding Transfused 2 units PRBCs Plan for Panendoscopy today by GI Monitor H/H Continue PPI. 2. Iron deficiency anemia Outpatient follow up with Hematology for Venofer Transfusion 3. Hypothyroidism: Continue Synthroid. 4. Mild hypokalemia: Supplement potassium in IV fluids. 5. DVT prophylaxis: SCDsKAREN. Chemical prophylaxis contraindicated secondary to symptomatic anemia, GI bleed. Wally Tomlinson MD Aug 11, 2017 11:09
--- NOTE | 2017-08-11 11:38 | EKG ---
Date Performed: 08/10/2017 Time Performed: 15:12:10 PTAGE: 72 years EKG: Probable Sinus rhythm with PACs. ABNORMAL RHYTHM ECG PREVIOUS TRACING : 07/19/2016 19.31 Likely no significant change. DOCTOR: Alana Watts Interpretating Date/Time 08/11/2017 11:36:32
[2017-08-11] MEDS ORDERED: EPINEPHrine HCL (1:10,000) 1 MG/10 ML SYRINGE SQ ONE (11:49)
--- NOTE | 2017-08-11 11:49 | PD.PROCEDR ---
GI Procedure PROCEDURE PERFORMED enteroscopy with ablation of AVMs and Bx from gastric mass, and injection of epinephrin INDICATION FOR PROCEDURE sever anemia, known history of gastrectomy and AVMs PROCEDURE: The procedure, risks and benefits were discussed with Ms. Chow and informed consent was obtained. Anesthesia sedated her with Diprivan. She was placed in the left lateral decubitus position. enteroscopy : The Pentax videoscope was introduced through the oropharynx and advanced to the distal portion of the jejunum under direct visualization. Retroflexion was performed in the stomach. 11 AVMs were ablated in the small bowel, there was friable mass in the stomach at the anastomosis, with area of active bleed, this was injected with 5 cc of Epinephrin 1/[id number] also Bx from the mass was done ESTIMATED BLOOD LOSS: [] cc SPECIMENS REMOVED: stomach at anastomosis COMPLICATIONS: none IMPRESSION: 11 AVMs were ablated in the small bowel, there was friable mass in the stomach at the anastomosis, with area of active bleed, this was injected with 5 cc of Epinephrin 1/25981 also Bx from the mass was done PLAN: keep NPO watch H/H surgical consult PRBC as needed guarded prognosis continue PPI Liborio Nunez MD Aug 11, 2017 11:49
--- NOTE | 2017-08-11 11:52 | HHI.GIFU ---
Subjective Remarks Patient laying in bed, seems to be more comfortable, still having some dark stool, had enteroscopy today, because of the finding on the enteroscopy the colonoscopy was not done Objective Vitals I&O Vital Signs Date Time Temp Pulse Resp B/P (MAP) Pulse Ox O2 Delivery O2 Flow Rate FiO2 08/11/17 08:00 96.3 77 17 114/62 (79) 93 08/11/17 04:00 96.3 82 22 116/71 (86) 95 08/11/17 00:00 96.8 78 20 106/66 (79) 96 08/10/17 20:00 98.4 90 18 107/65 (79) 93 08/10/17 18:46 08/10/17 18:02 98.4 82 26 110/63 (79) 96 Room Air 08/10/17 16:15 98.1 88 25 113/59 94 08/10/17 16:01 98.0 89 17 107/66 08/10/17 15:30 80 23 108/59 (75) Room Air 08/10/17 13:15 100 20 95 08/10/17 13:11 98.0 105 20 112/53 (72) 95 I/O 08/10/17 08/10/17 08/10/17 08/11/17 08/11/17 08/11/17 07:00 15:00 23:00 07:00 15:00 23:00 Intake Total 340 ml 400 ml 500 ml Balance 340 ml 400 ml 500 ml Intake Packed Cells 325 ml 400 ml Blood Product IV Normal Saline Flush 15 ml Other 500 ml # Voids 6 # Bowel Movements 6 Laboratory Laboratory Tests Test 08/10/17 14:00 08/10/17 23:22 08/11/17 02:30 08/11/17 04:05 White Blood Count 13.3 8.7 Red Blood Count 3.17 3.98 Hemoglobin 5.8 8.8 9.0 Hematocrit 20.4 27.5 28.0 Mean Corpuscular Volume 64.4 70.4 Mean Corpuscular Hemoglobin 18.2 22.6 Mean Corpuscular Hemoglobin Concent 28.3 32.2 Red Cell Distribution Width 20.3 24.8 Platelet Count 591 452 Mean Platelet Volume 7.8 7.9 Neutrophils (%) (Auto) 78.2 69.2 Lymphocytes (%) (Auto) 11.1 11.9 Monocytes (%) (Auto) 8.8 15.1 Eosinophils (%) (Auto) 0.9 2.0 Basophils (%) (Auto) 1.0 1.8 Neutrophils # (Auto) 10.4 6.0 Lymphocytes # (Auto) 1.5 1.0 Monocytes # (Auto) 1.2 1.3 Eosinophils # (Auto) 0.1 0.2 Basophils # (Auto) 0.1 0.2 CBC Comment AUTO DIFF DIFF FINAL Differential Comment AUTO DIFF CONFIRMED Platelet Estimate HIGH Platelet Morphology Comment ENLARGED Polychromasia 2.5 Ovalocytes 1+ Prothrombin Time 10.1 Prothromb Time International Ratio 1.0 Activated Partial Thromboplast Time 22.2 Urine Color YELLOW Urine Turbidity CLEAR Urine pH 5.5 Urine Specific [place] 1.028 Urine Protein TRACE Urine Glucose (UA) NEG Urine Ketones TRACE Urine Occult Blood NEG Urine Nitrite NEG Urine Bilirubin NEG Urine Urobilinogen 2.0 Urine Leukocyte Esterase NEG Urine RBC 1 Urine WBC 1 Urine Squamous Epithelial Cells 1 Urine Hyaline Casts 1 Urine Mucus MANY Microscopic Urinalysis Comment CULT NOT INDICATED Blood Urea Nitrogen 19 16 Creatinine 0.48 0.39 Random Glucose 105 81 Total Protein 4.5 4.4 Albumin 1.4 Calcium Level 7.8 7.4 Alkaline Phosphatase 101 Aspartate Amino Transf (AST/SGOT) 22 Alanine Aminotransferase (ALT/SGPT) 19 Total Bilirubin 0.2 Sodium Level 148 146 Potassium Level 3.4 3.4 Chloride Level 115 115 Carbon Dioxide Level 22.9 24.4 Anion Gap 10 7 Estimat Glomerular Filtration Rate 127 161 Stool C. difficile Toxin (PCR) NEGATIVE Stl C. difficile Toxin Epiderm 027 PRESUMPTIVE NEGATIVE Reticulocyte Count 1.9 Absolute Reticulocyte Count 75.9 Lactate Dehydrogenase 230 Protein Corrected Calcium 9.0 Iron Level 13 Total Iron Binding Capacity 270 Percent Iron Saturation 4.8 Ferritin 6 Vitamin B12 Level 719 Folate 14.0 Date/Time Source Procedure Growth Status 08/11/17 02:30 Stool Stool Cryptosporidium Exam Pending Received 08/11/17 02:30 Stool Stool Giardia Antigen (NANCY) Pending Received Physical Exam HEENT: Pupils round and reactive to light; normocephalic; atraumatic; no jaundice. Throat is clear. Looks pale NECK: Neck is supple, no JVD, no lymphadenopathy. CHEST: Chest is clear to auscultation and percussion. CARDIAC: Regular rate and rhythm with no murmur gallop or rubs. ABDOMEN: Soft, nondistended, nontender; no hepatosplenomegaly; bowel sounds are present in all four quadrants. EXTREMITIES: No clubbing, cyanosis, or edema. SKIN: Normal; no rash; no jaundice. GEOSCIENCE SPECIALIST: No focal deficits; alert and oriented times three. Assessment and Plan Plan patient was seen and examined, patient has active bleeding on the endoscopy she underwent enteroscopy today, because of the finding of the enteroscopy the colonoscopy was canceled especially that the patient was not clear IMPRESSION: 11 AVMs were ablated in the small bowel, there was friable mass in the stomach at the anastomosis, with area of active bleed, this was injected with 5 cc of Epinephrin 1/96948 also Bx from the mass was done PLAN: keep NPO watch H/H surgical consult PRBC as needed guarded prognosis continue PPI Liborio Nunez MD Aug 11, 2017 11:52
[2017-08-11 12:00] VITALS: BP 108/61; PULSE 73; RESP 17; TEMP 95.1; O2SAT 94
[2017-08-11] MEDS ORDERED: LIDOCAINE HCL 1% PF 5 ML SYRINGE OTHER ONE (12:00)
[2017-08-11] MEDS ORDERED: PROPOFOL 200 MG/20 ML AMP IV ONE (12:00)
[2017-08-11 16:00] VITALS: BP 107/56; PULSE 77; RESP 17; TEMP 97.8; O2SAT 95
--- NOTE | 2017-08-11 19:10 | MB ---
cc: Shar Elmore MD DATE OF CONSULT: 08/11/2017 REASON FOR CONSULTATION: Possible gastric mass. HISTORY OF PRESENT ILLNESS: The patient is a complex 72-year-old female who has had multiple previous admissions and surgery at [facility] for what sounds like multiple polyps with premalignant changes. The patient and family are not aware of any syndrome or genetic abnormality causing this. The patient was seen with a hemoglobin of 5.8 on admission and is now 9 after transfusion. Patient had multiple AV malformations, treated today by Dr. Nunez, as well as biopsy of a mass at the junction of the partial gastrectomy and the small bowel. Patient is currently not actively bleeding. PAST MEDICAL HISTORY: Significant for anemia and GI bleed. She has a history of asthma, arthritis, depression, multiple CVAs, GE reflux disease, and hypothyroidism. PAST SURGERIES: Include partial gastric resection and resection of multiple upper intestinal polyps, , hysterectomy, and wedge resection of right lower lobe of the lung. MEDICATIONS: Include ferrous sulfate 325 mg daily, vitamin D 1000 units daily, vitamin D3 1000 units daily, levothyroxine 25 mcg daily, B12 500 mg sublingually daily and omeprazole 20 mg p.o. daily. ALLERGIES: THE PATIENT HAS AN ALLERGY TO MORPHINE, WHICH CAUSES HIVES AND MEPERIDINE, WHICH CAUSES SWELLING. SOCIAL HISTORY: Patient denies alcohol, tobacco or illicit drug use. 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 PHYSICAL EXAMINATION: GENERAL: Reveals a thin female in no acute distress. VITAL SIGNS: BP 108/61, pulse 73, respirations 17, temperature 95.1, patient's blood pressure on admission was 112/53. HEENT: Sclerae are anicteric, pupils are reactive. CHEST: Clear to auscultation. CARDIAC: Reveals regular rate and rhythm. ABDOMEN: Soft and nontender. There is a well-healed midline incision as well as a transverse incision below the umbilicus, both are well-healed without hernias. Pulses are present. NEUROLOGIC: Nonfocal. LABORATORY VALUES: Demonstrate WBCs of 8.6, hemoglobin 9.0, hematocrit 28.0, platelets 452,000. Biopsy is pending from Dr. Nunez that was just performed today. I have asked the daughter to obtain pathology reports and operative notes from the [facility] so that we have a better idea of the procedures that were performed in 2013. It would be very informative to know what we are dealing with. I also discussed with the patient's daughter that should her mother have a polyposis-type syndrome, the children and grandchildren would be at risk as well. Patient's daughter also inquired about when they would be able to go home; I mentioned that it would likely be up to the medical team and that surgery would be involved if the patient developed a hypotensive episode. ASSESSMENT: GI hemorrhage with multiple arteriovenous malformations and polyps. PLAN: We will await pathologic diagnosis. If patient becomes hypotensive, repeat endoscopy would be in order and if bleeding unable to be controlled then surgical intervention could be contemplated. Please call us if needed over the weekend; we will check on the pathology on Monday. Thank you, Dr. Nunez, for asking us to see this very nice lady. MD ANNITA Herrera/cc , 02:42 PM , 07:09 PM
[2017-08-11 20:00] VITALS: BP 95/55; PULSE 85; RESP 20; TEMP 96.6; O2SAT 95
[2017-08-11] MEDS: 1/2 NS + KCL 20 MEQ INJ 1,000 ML IV SCH (20:36)
[2017-08-12] VITALS (7 sets, daily range): BP systolic 92–127; BP diastolic 56–85; PULSE 76–95; RESP 14–20; TEMP 95.9–98.4; O2SAT 93–98
[2017-08-12] MEDS: CHOLECALCIFEROL (VIT D3) 5000 UNIT CAP PO SCH (09:00)
[2017-08-12] MEDS: DOCUSATE SODIUM 50 MG/SENNA 8.6 MG TAB PO SCH ×2 (09:00→19:51)
[2017-08-12 09:05] LABS: AUTOMATED NEUTROPHIL # 9.7 TH/MM3 (1.8-7.7); BASOPHIL # 0.1 TH/MM3 (0-0.2); BASOPHIL % 1.1 % (0.0-2.0); EOSINOPHIL # 0.1 TH/MM3 (0-0.4); EOSINOPHIL % 0.6 % (0.0-4.0); HEMATOCRIT 27.1 % (35.0-46.0); HEMOGLOBIN 8.4 GM/DL (11.6-15.3); LYMPH % 6.1 % (9.0-44.0); LYMPHOCYTE # 0.7 TH/MM3 (1.0-4.8); MEAN CELL VOLUME 71.5 FL (80.0-100.0); MEAN CORPUSCULAR HEMOGLOBIN 22.1 PG (27.0-34.0); MEAN PLATELET VOLUME 8.6 FL (7.0-11.0); MONO % 11.7 % (0.0-8.0); MONOCYTE # 1.4 TH/MM3 (0-0.9); NEUT % 80.5 % (16.0-70.0); PLATELET COUNT 435 TH/MM3 (150-450); RED BLOOD COUNT 3.79 MIL/MM3 (4.00-5.30); RED CELL DISTRIBUTION WIDTH 25.1 % (11.6-17.2); WHITE BLOOD COUNT 12.1 TH/MM3 (4.0-11.0)
[2017-08-12] MEDS: FOLIC ACID 1 MG TAB PO SCH (09:22)
[2017-08-12] MEDS: PANTOPRAZOLE SODIUM 40 MG VIAL IV PUSH SCH (09:23)
[2017-08-12 09:27] LABS: ALBUMIN 1.3 GM/DL (3.4-5.0); ALT (GPT) 16 U/L (10-53); AST (GOT) 20 U/L (15-37); BICARBONATE 23.8 MEQ/L (21.0-32.0); BLOOD UREA NITROGEN 15 MG/DL (7-18); CALCIUM 7.6 MG/DL (8.5-10.1); CHLORIDE 114 MEQ/L (98-107); CREATININE 0.43 MG/DL (0.50-1.00); GLOMERULAR FILTRATION RATE 144 ML/MIN (>89); GLUCOSE,RANDOM 74 MG/DL (74-106); SODIUM (NA) 146 MEQ/L (136-145)
[2017-08-12 09:29] LABS: ALKALINE PHOSPHATASE 86 U/L (45-117); TOTAL BILIRUBIN ADULT 0.2 MG/DL (0.2-1.0); TOTAL PROTEIN 3.8 GM/DL (6.4-8.2)
--- NOTE | 2017-08-12 11:52 | HHI.PR ---
Subjective Remarks Follow-up symptomatic anemia/GI bleeding/iron deficiency anemia 08/11/17-patient seen and examined, she was transfused 2 units packed red blood cell with improvement of H&H, denies any chest pain or shortness of breath this morning. Plan for panendoscopy. 08/12/17-patient seen and examined, had colonoscopy and EGD with finding of AVM which were ablated and a friable mass which general surgery was consulted. Her heart is stable and denies any current GI bleed. Objective Vitals Vital Signs Date Time Temp Pulse Resp B/P (MAP) Pulse Ox O2 Delivery O2 Flow Rate FiO2 08/12/17 08:00 96.7 81 17 97/63 (74) 96 08/12/17 04:00 98.4 86 20 101/59 (73) 94 08/12/17 00:00 96.8 88 18 100/56 (71) 96 08/11/17 20:00 96.6 85 20 95/55 (68) 95 08/11/17 16:00 97.8 77 17 107/56 (73) 95 08/11/17 12:00 95.1 73 17 108/61 (77) 94 I/O 08/11/17 08/11/17 08/11/17 08/12/17 08/12/17 08/12/17 07:00 15:00 23:00 07:00 15:00 23:00 Intake Total 400 ml 500 ml 0 ml Balance 400 ml 500 ml 0 ml Intake Oral 0 ml Packed Cells 400 ml Other 500 ml # Voids 6 2 6 # Bowel Movements 6 2 6 Result Diagram: 08/12/17 0744 08/12/17 0744 Imaging Last Impressions Chest X-Ray 08/10/17 0000 Signed Impressions: Service Date/Time: August 15:05 - CONCLUSION: No acute disease. Wally Nix MD Objective Remarks GENERAL: NAD SKIN: Warm and dry. HEAD: Normocephalic. EYES: No scleral icterus. No injection or drainage. NECK: Supple, trachea midline. No JVD or lymphadenopathy. CARDIOVASCULAR: Regular rate and rhythm without murmurs, gallops, or rubs. RESPIRATORY: Breath sounds equal bilaterally. No accessory muscle use. GASTROINTESTINAL: Abdomen soft, non-tender, nondistended. MUSCULOSKELETAL: No cyanosis, or edema. BACK: Nontender without obvious deformity. No CVA tenderness. A/P Problem List: (1) Anemia ICD Code: D64.9 - Anemia, unspecified (2) GI bleed ICD Code: K92.2 - Gastrointestinal hemorrhage, unspecified Assessment and Plan 72-year-old female with 1. 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 Friable mass at the junction of the partial gastrectomy and the small bowel Finding per colonoscopy Appreciate input from general surgery pending biopsy report 2. Iron deficiency anemia Outpatient follow up with Hematology for Venofer Transfusion 3. Hypothyroidism: Continue Synthroid. 4. Mild hypokalemia: Supplement potassium in IV fluids. 5. DVT prophylaxis: KAREN Mcclendon. Chemical prophylaxis contraindicated secondary to symptomatic anemia, GI bleed. Wally Tomlinson MD Aug 12, 2017 11:52
--- NOTE | 2017-08-12 12:55 | HHI.GIFU ---
Subjective Remarks Pt resting in bed, family at bedside. No further bleeding. SAys she is eating alot. (Bibi Miranda) Objective Vitals I&O Vital Signs Date Time Temp Pulse Resp B/P (MAP) Pulse Ox O2 Delivery O2 Flow Rate FiO2 08/12/17 08:00 96.7 81 17 97/63 (74) 96 08/12/17 04:00 98.4 86 20 101/59 (73) 94 08/12/17 00:00 96.8 88 18 100/56 (71) 96 08/11/17 20:00 96.6 85 20 95/55 (68) 95 08/11/17 16:00 97.8 77 17 107/56 (73) 95 I/O 08/11/17 08/11/17 08/11/17 08/12/17 08/12/17 08/12/17 07:00 15:00 23:00 07:00 15:00 23:00 Intake Total 400 ml 500 ml 0 ml Balance 400 ml 500 ml 0 ml Intake Oral 0 ml Packed Cells 400 ml Other 500 ml # Voids 6 2 6 # Bowel Movements 6 2 6 Laboratory Laboratory Tests Test 08/12/17 07:44 White Blood Count 12.1 Red Blood Count 3.79 Hemoglobin 8.4 Hematocrit 27.1 Mean Corpuscular Volume 71.5 Mean Corpuscular Hemoglobin 22.1 Mean Corpuscular Hemoglobin Concent 31.0 Red Cell Distribution Width 25.1 Platelet Count 435 Mean Platelet Volume 8.6 Neutrophils (%) (Auto) 80.5 Lymphocytes (%) (Auto) 6.1 Monocytes (%) (Auto) 11.7 Eosinophils (%) (Auto) 0.6 Basophils (%) (Auto) 1.1 Neutrophils # (Auto) 9.7 Lymphocytes # (Auto) 0.7 Monocytes # (Auto) 1.4 Eosinophils # (Auto) 0.1 Basophils # (Auto) 0.1 CBC Comment AUTO DIFF Differential Comment AUTO DIFF CONFIRMED Polychromasia 2.0 Blood Urea Nitrogen 15 Creatinine 0.43 Random Glucose 74 Total Protein 3.8 Albumin 1.3 Calcium Level 7.6 Alkaline Phosphatase 86 Aspartate Amino Transf (AST/SGOT) 20 Alanine Aminotransferase (ALT/SGPT) 16 Total Bilirubin 0.2 Sodium Level 146 Potassium Level 3.8 Chloride Level 114 Carbon Dioxide Level 23.8 Anion Gap 8 Estimat Glomerular Filtration Rate 144 Date/Time Source Procedure Growth Status 08/11/17 02:30 Stool Stool Cryptosporidium Exam Pending Received 08/11/17 02:30 Stool Stool Giardia Antigen (NANCY) Pending Received Imaging Last Impressions Chest X-Ray 08/10/17 0000 Signed Impressions: Service Date/Time: August 15:05 - CONCLUSION: No acute disease. Wally Nix MD Physical Exam HEENT: PERRL; normocephalic; atraumatic; no jaundice. CHEST: CTA CARDIAC: RRR ABDOMEN: Soft, nondistended, nontender; no hepatosplenomegaly; bowel sounds are present in all four quadrants. EXTREMITIES: No clubbing, cyanosis, or edema. SKIN: pale; no rash; no jaundice. MODERN DANCER: No focal deficits; alert and oriented times three. (Bibi Miranda) Assessment and Plan Plan Assessment: - Anemia, microcytic- history of anemia- receiving oral iron supplement at home, seen by real estate administrator for first time today to be started on iron transfusions, was sent to ER for severely low H/H. Currently 5.8/20.4. (+) nausea, no emesis. (+) heartburn, not controlled by Omeprazole. Last panendoscopy in Mar 2017, done by our service in office, will obtain records. Denies ETOH, smoking, NSAIDs, blood thinners. - Diarrhea- chronic since having partial gastrectomy/partial colectomy in 2014 but increasing in frequency since iron supplements changed a week and a half ago. Reports black stools, not new, started when she was started on iron supplements. - History of partial gastrectomy/partial colectomy at [facility] in January 2015 , daughter reports indication was excessive polyps causing obstruction. Will obtain office records. - Congenital renal agenesis Addendum: Office records reviewed -->S/P distal gastrectomy with Hurt anastomosis. Distal stomach and omentum resection: multiple polyps with hamartomatous/hyperplastic features measuring from 1.0 to 7.0 cm dimension. The largest polyp shows low-grade dysplasia and multiple foci of high-grade dysplasia. Focal low-grade dysplasia also seen in one additional polyp. Negative for invasive carcinoma, surgical margins negative for dysplasia. EGD (Mar 2017) --> Distal part of stomach resected. Multiple large polyps in the stomach with polypoid mass in junction from stomach to duodenum. Pathology --> acute gastritis. Many acute inflammatory cells with demes in lamina propia. Colonoscopy (Mar 2017) -->Colon polyp in transverse colon, colon polyp in descending colon, colon polyps x 3 in sigmoid colon, 1 cm polyp rectum. Polyps benign. 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 no further bleeding, HH relatively stable PLAN: JOSE await bx monitor HH PRBC as needed notify GI of active bleeding continue PPI PT seen by myself and Dr Lucero and this note is on his behalf (Bibi Miranda) Physician Comments Seen and examined with SCHOOL PHOTOGRAPHER, gastric biopsies pending. No bleeding reported. 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 recent outpt. colonoscopy reported. Continue Protonix. (Agustina Lucero MD) Bibi Miranda Aug 12, 2017 12:55 Agustina Lucero MD Aug 12, 2017 15:57
[2017-08-12] MEDS: 1/2 NS + KCL 20 MEQ INJ 1,000 ML IV SCH (13:52)
--- NOTE | 2017-08-12 14:28 | HHI.PR ---
cc: Columba Mccarthy MD Subjective Subjective Notes DAILY PROGRESS NOTE FOR SURGICAL ATTENDING, DR. COLUMBA MCCARTHY When do I get to go home Family at bedside Tolerating some by mouth Objective Vitals/I&O Vital Signs Date Time Temp Pulse Resp B/P (MAP) Pulse Ox O2 Delivery O2 Flow Rate FiO2 08/12/17 12:00 97.5 95 17 92/65 (74) 96 08/10/17 18:02 Room Air Labs Laboratory Tests Test 08/12/17 07:44 White Blood Count 12.1 Red Blood Count 3.79 Hemoglobin 8.4 Hematocrit 27.1 Mean Corpuscular Volume 71.5 Mean Corpuscular Hemoglobin 22.1 Mean Corpuscular Hemoglobin Concent 31.0 Red Cell Distribution Width 25.1 Platelet Count 435 Mean Platelet Volume 8.6 Neutrophils (%) (Auto) 80.5 Lymphocytes (%) (Auto) 6.1 Monocytes (%) (Auto) 11.7 Eosinophils (%) (Auto) 0.6 Basophils (%) (Auto) 1.1 Neutrophils # (Auto) 9.7 Lymphocytes # (Auto) 0.7 Monocytes # (Auto) 1.4 Eosinophils # (Auto) 0.1 Basophils # (Auto) 0.1 CBC Comment AUTO DIFF Differential Comment AUTO DIFF CONFIRMED Polychromasia 2.0 Blood Urea Nitrogen 15 Creatinine 0.43 Random Glucose 74 Total Protein 3.8 Albumin 1.3 Calcium Level 7.6 Alkaline Phosphatase 86 Aspartate Amino Transf (AST/SGOT) 20 Alanine Aminotransferase (ALT/SGPT) 16 Total Bilirubin 0.2 Sodium Level 146 Potassium Level 3.8 Chloride Level 114 Carbon Dioxide Level 23.8 Anion Gap 8 Estimat Glomerular Filtration Rate 144 Date/Time Source Procedure Growth Status 08/11/17 02:30 Stool Stool Cryptosporidium Exam Pending Received 08/11/17 02:30 Stool Stool Giardia Antigen (NANCY) Pending Received Cardiovascular: Regular Abdomen: Non-tender, Other A/P Problem List: (1) GERD (gastroesophageal reflux disease) ICD Codes: K21.9 - Gastro-esophageal reflux disease without esophagitis Status: Chronic (2) Anemia ICD Codes: D64.9 - Anemia, unspecified Status: Chronic (3) GI bleed ICD Codes: K92.2 - Gastrointestinal hemorrhage, unspecified (4) Severe anemia ICD Codes: D64.9 - Anemia, unspecified Status: Chronic Assessment and Plan 72-year-old female with upper GI bleed recent endoscopy showing avionics biopsies obtained pathology pending Medical team addressing medical issues Surgical plan is to await pathology results if she starts to bleed again may require repeat endoscopy or surgical intervention if rebleeds Dr. Elmore returns tomorrow Attending Statement NOTE FOR SURGICAL ATTENDING, DR. COLUMBA MCCARTHY I attest that I had a [id number] encounter with the patient on the same day, and personally performed and documented my assessment and findings in the medical record. The following services were provided during this hospital visit: Chart data review, vital sign assessments/reviewing monitor data Review of consultations notes if present. Medication orders/review and/or management Ordering and/or reviewing lab tests Ordering and/or interpreting/reviewing x-rays and/or diagnostic studies Care of the patient and discussion of the patient with the care team Documentation time To help prompt me to consider important information that might be impacting today's encounter and assessment, information from prior notes written by myself or my colleagues may have been "brought forward/copy and pasted" into today's note. Columba Mccarthy MD Aug 12, 2017 14:28
[2017-08-12] MEDS ORDERED: POTA20TA5 PO (18:28)
[2017-08-12] MEDS ORDERED: FURO1TAB62 PO (18:28)
[2017-08-13] VITALS (7 sets, daily range): BP systolic 98–112; BP diastolic 56–70; PULSE 71–89; RESP 14–17; TEMP 96.6–97.1; O2SAT 94–98
[2017-08-13] MEDS: 1/2 NS + KCL 20 MEQ INJ 1,000 ML IV SCH ×2 (01:12→15:30)
[2017-08-13] MEDS: DOCUSATE SODIUM 50 MG/SENNA 8.6 MG TAB PO SCH ×2 (09:00→19:54)
[2017-08-13] MEDS: CHOLECALCIFEROL (VIT D3) 5000 UNIT CAP PO SCH (09:00)
[2017-08-13] MEDS: LEVOTHYROXINE SODIUM 25 MCG TAB PO SCH (09:02)
[2017-08-13] MEDS: POTASSIUM CHLORIDE 20 MEQ CONTROLLED RELEASE TAB PO SCH (09:02)
[2017-08-13] MEDS: FOLIC ACID 1 MG TAB PO SCH (09:02)
[2017-08-13] MEDS: FUROSEMIDE 20 MG TAB PO SCH (09:02)
[2017-08-13] MEDS: PANTOPRAZOLE SODIUM 40 MG VIAL IV PUSH SCH (09:03)
--- NOTE | 2017-08-13 09:54 | HHI.PR ---
Subjective Remarks Follow-up symptomatic anemia/GI bleeding/iron deficiency anemia 08/11/17-patient seen and examined, she was transfused 2 units packed red blood cell with improvement of H&H, denies any chest pain or shortness of breath this morning. Plan for panendoscopy. 08/12/17-patient seen and examined, had colonoscopy and EGD with finding of AVM which were ablated and a friable mass which general surgery was consulted. Her heart is stable and denies any current GI bleed. 08/13/17-patient seen and examined, stable and no complaints. No GI bleed. Objective Vitals Vital Signs Date Time Temp Pulse Resp B/P (MAP) Pulse Ox O2 Delivery O2 Flow Rate FiO2 08/13/17 08:00 96.9 84 17 98/56 (70) 96 08/13/17 04:00 97.1 89 15 110/62 (78) 95 08/13/17 04:00 75 08/13/17 00:00 96.7 80 14 100/60 (73) 96 08/12/17 23:37 78 08/12/17 20:00 77 08/12/17 20:00 96.6 76 14 118/72 (87) 98 08/12/17 16:00 95.9 89 17 127/85 (99) 93 08/12/17 12:00 97.5 95 17 92/65 (74) 96 I/O 08/12/17 08/12/17 08/12/17 08/13/17 08/13/17 08/13/17 07:00 15:00 23:00 07:00 15:00 23:00 Intake Total 1198 ml 1000 ml Balance 1198 ml 1000 ml Intake Oral 1198 ml 1000 ml # Voids 6 6 3 # Bowel Movements 6 4 3 Result Diagram: 08/12/17 0744 08/12/17 0744 Objective Remarks GENERAL: NAD SKIN: Warm and dry. HEAD: Normocephalic. EYES: No scleral icterus. No injection or drainage. NECK: Supple, trachea midline. No JVD or lymphadenopathy. CARDIOVASCULAR: Regular rate and rhythm without murmurs, gallops, or rubs. RESPIRATORY: Breath sounds equal bilaterally. No accessory muscle use. GASTROINTESTINAL: Abdomen soft, non-tender, nondistended. MUSCULOSKELETAL: No cyanosis, or edema. BACK: Nontender without obvious deformity. No CVA tenderness. A/P Problem List: (1) Anemia ICD Code: D64.9 - Anemia, unspecified Status: Chronic (2) GI bleed ICD Code: K92.2 - Gastrointestinal hemorrhage, unspecified Assessment and Plan 72-year-old female with 1. 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 Friable mass at the junction of the partial gastrectomy and the small bowel Finding per colonoscopy Appreciate input from general surgery pending biopsy report 2. Iron deficiency anemia Outpatient follow up with Hematology for Venofer Transfusion 3. Hypothyroidism: Continue Synthroid. 4. Mild hypokalemia: resolved s/p Supplement potassium in IV fluids. 5. DVT prophylaxis: NARENDRAsKAREN. Chemical prophylaxis contraindicated secondary to symptomatic anemia, GI bleed. Wally Tomlinson MD Aug 13, 2017 09:54
--- NOTE | 2017-08-13 14:49 | HHI.PR ---
Subjective Subjective Notes No symptoms Hb drifting down still. Objective Vitals/I&O Vital Signs Date Time Temp Pulse Resp B/P (MAP) Pulse Ox O2 Delivery O2 Flow Rate FiO2 08/13/17 12:00 96.7 88 17 112/60 (77) 98 08/10/17 18:02 Room Air Labs Date/Time Source Procedure Growth Status 08/11/17 02:30 Stool Stool Cryptosporidium Exam Pending Received 08/11/17 02:30 Stool Stool Giardia Antigen (NANCY) Pending Received Lungs: Clear Abdomen: Non-tender A/P Problem List: (1) GERD (gastroesophageal reflux disease) ICD Codes: K21.9 - Gastro-esophageal reflux disease without esophagitis Status: Chronic (2) Anemia ICD Codes: D64.9 - Anemia, unspecified Status: Chronic (3) GI bleed ICD Codes: K92.2 - Gastrointestinal hemorrhage, unspecified (4) Severe anemia ICD Codes: D64.9 - Anemia, unspecified Status: Chronic Assessment and Plan Anemia requiring transfusion, due to multiple AVM's; premalignant polyps. Await pathology from Monday biopsy (08/11). Attempting to obtain records from [facility] with pathology Does pt. have polyposis syndrome? Surgery will not likely resolve her problem, as she likely has multiple polyps. Not sure whether octreotide or vasopressin would help. Shar Elmore MD Aug 13, 2017 14:49
--- NOTE | 2017-08-13 14:50 | HHI.GIFU ---
Subjective Remarks Resting in the bed talking on the phone Soraya warner, seems to enjoy his company No nausea and vomiting Positive diarrhea, C. difficile negative on 08/11/17 Denies any lightheadedness (Fior Aaron) Objective Vitals I&O Vital Signs Date Time Temp Pulse Resp B/P (MAP) Pulse Ox O2 Delivery O2 Flow Rate FiO2 08/13/17 12:00 96.7 88 17 112/60 (77) 98 08/13/17 08:00 96.9 84 17 98/56 (70) 96 08/13/17 04:00 97.1 89 15 110/62 (78) 95 08/13/17 04:00 75 08/13/17 00:00 96.7 80 14 100/60 (73) 96 08/12/17 23:37 78 08/12/17 20:00 77 08/12/17 20:00 96.6 76 14 118/72 (87) 98 08/12/17 16:00 95.9 89 17 127/85 (99) 93 I/O 08/12/17 08/12/17 08/12/17 08/13/17 08/13/17 08/13/17 07:00 15:00 23:00 07:00 15:00 23:00 Intake Total 1198 ml 1000 ml Balance 1198 ml 1000 ml Intake Oral 1198 ml 1000 ml # Voids 6 6 3 # Bowel Movements 6 4 3 Laboratory Date/Time Source Procedure Growth Status 08/11/17 02:30 Stool Stool Cryptosporidium Exam Pending Received 08/11/17 02:30 Stool Stool Giardia Antigen (NANCY) Pending Received Imaging Last Impressions Chest X-Ray 08/10/17 0000 Signed Impressions: Service Date/Time: August 15:05 - CONCLUSION: No acute disease. Wally Nix MD Physical Exam HEENT: PERRL; normocephalic; atraumatic; no jaundice.pale CHEST: Essentially clear with no obvious rhonchi CARDIAC: RRR ABDOMEN: Soft, nondistended, nontender; no hepatosplenomegaly; bowel sounds are present in all four quadrants. EXTREMITIES: No clubbing, cyanosis, or edema. SKIN: pale; no rash; no jaundice. RED HAT OPEN STACK ADMINISTRATOR: No focal deficits; alert and oriented times three. (Fior Aaron) Assessment and Plan Plan Assessment: - Anemia, microcytic- history of anemia- receiving oral iron supplement at home, seen by film or videotape editor for first time today to be started on iron transfusions, was sent to ER for severely low H/H. Currently 5.8/20.4. (+) nausea, no emesis. (+) heartburn, not controlled by Omeprazole. Last panendoscopy in Mar 2017, done by our service in office, will obtain records. Denies ETOH, smoking, NSAIDs, blood thinners. - Diarrhea- chronic since having partial gastrectomy/partial colectomy in 2014 but increasing in frequency since iron supplements changed a week and a half ago. Reports black stools, not new, started when she was started on iron supplements. - History of partial gastrectomy/partial colectomy at [facility] in January 2015 , daughter reports indication was excessive polyps causing obstruction. Will obtain office records. - Congenital renal agenesis Addendum: Office records reviewed -->S/P distal gastrectomy with Hurt anastomosis. Distal stomach and omentum resection: multiple polyps with hamartomatous/hyperplastic features measuring from 1.0 to 7.0 cm dimension. The largest polyp shows low-grade dysplasia and multiple foci of high-grade dysplasia. Focal low-grade dysplasia also seen in one additional polyp. Negative for invasive carcinoma, surgical margins negative for dysplasia. EGD (Mar 2017) --> Distal part of stomach resected. Multiple large polyps in the stomach with polypoid mass in junction from stomach to duodenum. Pathology --> acute gastritis. Many acute inflammatory cells with demes in lamina propia. Colonoscopy (Mar 2017) -->Colon polyp in transverse colon, colon polyp in descending colon, colon polyps x 3 in sigmoid colon, 1 cm polyp rectum. Polyps benign. 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 no further bleeding, HH relatively stable 08/13/17, patient states multiple diarrhea stools today, C. difficile negative on 08/11/17, hemoglobin stable at 8.6. Stool studies negative for enteric pathogens PLAN: JOSE await bx results, pending gastric Cholestyramine added monitor HH/HCT, labs PRBC as needed notify GI of active bleeding continue PPI Supportive care PT seen by myself and Dr Lucero and this note is on his behalf (Fior Aaron) Physician Comments Seen and examined with CHAPARRO, await biopsy results, possible colonoscopy next week depending upon symptoms. Monitor labs. (Agustina Lucero MD) Fior Aaron Aug 13, 2017 14:50 Agustina Lucero MD Aug 13, 2017 16:35
[2017-08-13] MEDS: CHOLESTYRAMINE LIGHT 4 GM PACKAGE PO SCH (16:02)
[2017-08-14] VITALS (7 sets, daily range): BP systolic 96–115; BP diastolic 61–74; PULSE 72–94; RESP 15–19; TEMP 95.7–97.5; O2SAT 91–96
[2017-08-14] MEDS: 1/2 NS + KCL 20 MEQ INJ 1,000 ML IV SCH ×2 (05:22→19:39)
[2017-08-14] MEDS: LEVOTHYROXINE SODIUM 25 MCG TAB PO SCH (05:22)
[2017-08-14] MEDS: CHOLESTYRAMINE LIGHT 4 GM PACKAGE PO SCH (08:17)
[2017-08-14] MEDS: FUROSEMIDE 20 MG TAB PO SCH (08:17)
[2017-08-14] MEDS: POTASSIUM CHLORIDE 20 MEQ CONTROLLED RELEASE TAB PO SCH (08:17)
[2017-08-14] MEDS: PANTOPRAZOLE SODIUM 40 MG VIAL IV PUSH SCH (08:17)
[2017-08-14] MEDS: CHOLECALCIFEROL (VIT D3) 5000 UNIT CAP PO SCH (08:17)
[2017-08-14] MEDS: FOLIC ACID 1 MG TAB PO SCH (08:17)
[2017-08-14] MEDS: DOCUSATE SODIUM 50 MG/SENNA 8.6 MG TAB PO SCH ×2 (08:18→19:38)
[2017-08-14 09:07] LABS: AUTOMATED NEUTROPHIL # 7.9 TH/MM3 (1.8-7.7); BASOPHIL # 0.1 TH/MM3 (0-0.2); BASOPHIL % 1.2 % (0.0-2.0); EOSINOPHIL # 0.2 TH/MM3 (0-0.4); EOSINOPHIL % 2.2 % (0.0-4.0); HEMATOCRIT 26.3 % (35.0-46.0); HEMOGLOBIN 8.1 GM/DL (11.6-15.3); LYMPH % 9.2 % (9.0-44.0); LYMPHOCYTE # 0.9 TH/MM3 (1.0-4.8); MEAN CELL VOLUME 71.1 FL (80.0-100.0); MEAN CORPUSCULAR HGB CONC 30.9 % (32.0-36.0); MEAN PLATELET VOLUME 8.4 FL (7.0-11.0); MONO % 10.2 % (0.0-8.0); NEUT % 77.2 % (16.0-70.0); PLATELET COUNT 276 TH/MM3 (150-450); RED CELL DISTRIBUTION WIDTH 26.6 % (11.6-17.2); WHITE BLOOD COUNT 10.3 TH/MM3 (4.0-11.0)
[2017-08-14 10:54] LABS: KERATOCYTES OCC (NORMAL)
[2017-08-14 10:55] LABS: HELMET CELLS OCC (NORMAL); TOXIC GRANULATION 1+ (NORMAL)
--- NOTE | 2017-08-14 11:11 | HHI.PR ---
Subjective Remarks Follow-up symptomatic anemia/GI bleeding/iron deficiency anemia 08/11/17-patient seen and examined, she was transfused 2 units packed red blood cell with improvement of H&H, denies any chest pain or shortness of breath this morning. Plan for panendoscopy. 08/12/17-patient seen and examined, had colonoscopy and EGD with finding of AVM which were ablated and a friable mass which general surgery was consulted. Her heart is stable and denies any current GI bleed. 08/13/17-patient seen and examined, stable and no complaints. No GI bleed. 08/14/17-patient seen and examined, doing well and resting possibly in bed. Tolerating by mouth without any complication of nausea or vomiting. Objective Vitals Vital Signs Date Time Temp Pulse Resp B/P (MAP) Pulse Ox O2 Delivery O2 Flow Rate FiO2 08/14/17 08:00 95.7 84 19 103/61 (75) 91 08/14/17 04:04 77 08/14/17 04:00 97.1 74 15 115/70 (85) 92 08/14/17 00:00 97.5 72 16 112/74 (87) 94 08/13/17 23:55 74 08/13/17 20:00 97.1 76 16 110/70 (83) 94 08/13/17 20:00 71 08/13/17 16:00 96.6 77 17 102/61 (75) 98 08/13/17 12:00 96.7 88 17 112/60 (77) 98 I/O 08/13/17 08/13/17 08/13/17 08/14/17 08/14/17 08/14/17 07:00 15:00 23:00 07:00 15:00 23:00 Intake Total 1000 ml 1080 ml 1000 ml 0 ml Balance 1000 ml 1080 ml 1000 ml 0 ml Intake Oral 1000 ml 1080 ml 1000 ml IV Total 0 ml # Voids 3 5 2 # Bowel Movements 3 0 3 Result Diagram: 08/14/17 0827 08/12/17 0744 Imaging Last Impressions Chest X-Ray 08/10/17 0000 Signed Impressions: Service Date/Time: August 15:05 - CONCLUSION: No acute disease. Wally Nix MD Objective Remarks GENERAL: NAD SKIN: Warm and dry. HEAD: Normocephalic. EYES: No scleral icterus. No injection or drainage. NECK: Supple, trachea midline. No JVD or lymphadenopathy. CARDIOVASCULAR: Regular rate and rhythm without murmurs, gallops, or rubs. RESPIRATORY: Breath sounds equal bilaterally. No accessory muscle use. GASTROINTESTINAL: Abdomen soft, non-tender, nondistended. MUSCULOSKELETAL: No cyanosis, or edema. BACK: Nontender without obvious deformity. No CVA tenderness. A/P Problem List: (1) Anemia ICD Code: D64.9 - Anemia, unspecified Status: Chronic (2) GI bleed ICD Code: K92.2 - Gastrointestinal hemorrhage, unspecified Assessment and Plan 72-year-old female with 1. 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 Friable mass at the junction of the partial gastrectomy and the small bowel Finding per colonoscopy Appreciate input from general surgery pending biopsy report as well as records from [facility] with pathology from prior partial gastrectomy 2. Iron deficiency anemia Outpatient follow up with Hematology for Venofer Transfusion 3. Hypothyroidism: Continue Synthroid. 4. Mild hypokalemia: resolved s/p Supplement potassium in IV fluids. 5. DVT prophylaxis: KAREN Mcclendon. Chemical prophylaxis contraindicated secondary to symptomatic anemia, GI bleed. Wally Tomlinson MD Aug 14, 2017 11:11
--- NOTE | 2017-08-14 13:04 | HHI.GIFU ---
Subjective Remarks Pt resting in bed, family at bedside. No bleeding, no complaints. (Bibi Miranda) Objective Vitals I&O Vital Signs Date Time Temp Pulse Resp B/P (MAP) Pulse Ox O2 Delivery O2 Flow Rate FiO2 08/14/17 12:00 97.5 74 18 96/63 (74) 96 08/14/17 08:00 95.7 84 19 103/61 (75) 91 08/14/17 04:04 77 08/14/17 04:00 97.1 74 15 115/70 (85) 92 08/14/17 00:00 97.5 72 16 112/74 (87) 94 08/13/17 23:55 74 08/13/17 20:00 97.1 76 16 110/70 (83) 94 08/13/17 20:00 71 08/13/17 16:00 96.6 77 17 102/61 (75) 98 I/O 08/13/17 08/13/17 08/13/17 08/14/17 08/14/17 08/14/17 07:00 15:00 23:00 07:00 15:00 23:00 Intake Total 1000 ml 1080 ml 1000 ml 0 ml Balance 1000 ml 1080 ml 1000 ml 0 ml Intake Oral 1000 ml 1080 ml 1000 ml IV Total 0 ml # Voids 3 5 2 # Bowel Movements 3 0 3 Laboratory Laboratory Tests Test 08/14/17 08:27 White Blood Count 10.3 Red Blood Count 3.70 Hemoglobin 8.1 Hematocrit 26.3 Mean Corpuscular Volume 71.1 Mean Corpuscular Hemoglobin 22.0 Mean Corpuscular Hemoglobin Concent 30.9 Red Cell Distribution Width 26.6 Platelet Count 276 Mean Platelet Volume 8.4 Neutrophils (%) (Auto) 77.2 Lymphocytes (%) (Auto) 9.2 Monocytes (%) (Auto) 10.2 Eosinophils (%) (Auto) 2.2 Basophils (%) (Auto) 1.2 Neutrophils # (Auto) 7.9 Lymphocytes # (Auto) 0.9 Monocytes # (Auto) 1.0 Eosinophils # (Auto) 0.2 Basophils # (Auto) 0.1 CBC Comment AUTO DIFF Differential Comment AUTO DIFF CONFIRMED Toxic Granulation 1+ Platelet Estimate NORMAL Platelet Morphology Comment CLUMPED Helmet Cells OCC Acanthocytes Keratocytes OCC Date/Time Source Procedure Growth Status 08/11/17 02:30 Stool Stool Cryptosporidium Exam Pending Received 08/11/17 02:30 Stool Stool Giardia Antigen (NANCY) Pending Received Imaging Last Impressions Chest X-Ray 08/10/17 0000 Signed Impressions: Service Date/Time: , August 10, 2017 15:05 - CONCLUSION: No acute disease. Wally Nix MD Physical Exam HEENT: PERRL; normocephalic; atraumatic; no jaundice CHEST: CTA CARDIAC: RRR ABDOMEN: Soft, nondistended, nontender; no hepatosplenomegaly; bowel sounds are present in all four quadrants. EXTREMITIES: No clubbing, cyanosis,+ BLE edema SKIN: pale; no rash; no jaundice. TAXATION ECONOMIST: No focal deficits; alert and oriented times three. (Bibi Miranda SECURITY DIRECTOR) Assessment and Plan Plan Assessment: - Anemia, microcytic- history of anemia- receiving oral iron supplement at home, seen by sweatband flanger for first time today to be started on iron transfusions, was sent to ER for severely low H/H. Currently 5.8/20.4. (+) nausea, no emesis. (+) heartburn, not controlled by Omeprazole. Last panendoscopy in Mar 2017, done by our service in office, will obtain records. Denies ETOH, smoking, NSAIDs, blood thinners. - Diarrhea- chronic since having partial gastrectomy/partial colectomy in 2014 but increasing in frequency since iron supplements changed a week and a half ago. Reports black stools, not new, started when she was started on iron supplements. - History of partial gastrectomy/partial colectomy at [facility] in January 2015 , daughter reports indication was excessive polyps causing obstruction. Will obtain office records. - Congenital renal agenesis Addendum: Office records reviewed -->S/P distal gastrectomy with Hurt anastomosis. Distal stomach and omentum resection: multiple polyps with hamartomatous/hyperplastic features measuring from 1.0 to 7.0 cm dimension. The largest polyp shows low-grade dysplasia and multiple foci of high-grade dysplasia. Focal low-grade dysplasia also seen in one additional polyp. Negative for invasive carcinoma, surgical margins negative for dysplasia. EGD (Mar 2017) --> Distal part of stomach resected. Multiple large polyps in the stomach with polypoid mass in junction from stomach to duodenum. Pathology --> acute gastritis. Many acute inflammatory cells with demes in lamina propia. Colonoscopy (Mar 2017) -->Colon polyp in transverse colon, colon polyp in descending colon, colon polyps x 3 in sigmoid colon, 1 cm polyp rectum. Polyps benign. 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 no further bleeding, HH relatively stable 08/13/17, patient states multiple diarrhea stools today, C. difficile negative on 08/11/17, hemoglobin stable at 8.6. Stool studies negative for enteric pathogens 08/14/17 bx still lpending. HH mild decrease. no obvious bleeding. PLAN: JOSE await bx results Cholestyramine monitor HH PRBC as needed notify GI of active bleeding continue PPI Supportive care PT seen by myself and Dr Motley and this note is on his behalf (Bibi Miranda) Physician Comments Agree with above assessment and plan . No signs of active GI bleeding. Will follow up with you. (Butch Motley MD) Bibi Miranda Aug 14, 2017 13:04 Butch Motley MD Aug 14, 2017 14:48
--- NOTE | 2017-08-14 20:31 | HHI.PR ---
Subjective Subjective Notes Hb slowly decreasing Pathology pending Objective Vitals/I&O Vital Signs Date Time Temp Pulse Resp B/P (MAP) Pulse Ox O2 Delivery O2 Flow Rate FiO2 08/14/17 16:00 97.1 94 17 109/72 (84) 93 08/10/17 18:02 Room Air Labs Laboratory Tests Test 08/14/17 08:27 White Blood Count 10.3 Red Blood Count 3.70 Hemoglobin 8.1 Hematocrit 26.3 Mean Corpuscular Volume 71.1 Mean Corpuscular Hemoglobin 22.0 Mean Corpuscular Hemoglobin Concent 30.9 Red Cell Distribution Width 26.6 Platelet Count 276 Mean Platelet Volume 8.4 Neutrophils (%) (Auto) 77.2 Lymphocytes (%) (Auto) 9.2 Monocytes (%) (Auto) 10.2 Eosinophils (%) (Auto) 2.2 Basophils (%) (Auto) 1.2 Neutrophils # (Auto) 7.9 Lymphocytes # (Auto) 0.9 Monocytes # (Auto) 1.0 Eosinophils # (Auto) 0.2 Basophils # (Auto) 0.1 CBC Comment AUTO DIFF Differential Comment AUTO DIFF CONFIRMED Toxic Granulation 1+ Platelet Estimate NORMAL Platelet Morphology Comment CLUMPED Helmet Cells OCC Acanthocytes Keratocytes OCC Date/Time Source Procedure Growth Status 08/11/17 02:30 Stool Stool Cryptosporidium Exam - Final NEGATIVE - NO CRYPTOSPORIDIUM ANTIGEN... Complete 08/11/17 02:30 Stool Stool Giardia Antigen (NANCY) - Final NEGATIVE - NO GIARDIA ANTIGEN DETECTE... Complete Abdomen: Non-distended, Non-tender, BS normal A/P Problem List: (1) GERD (gastroesophageal reflux disease) ICD Codes: K21.9 - Gastro-esophageal reflux disease without esophagitis Status: Chronic (2) Anemia ICD Codes: D64.9 - Anemia, unspecified Status: Chronic (3) GI bleed ICD Codes: K92.2 - Gastrointestinal hemorrhage, unspecified (4) Severe anemia ICD Codes: D64.9 - Anemia, unspecified Status: Chronic Assessment and Plan Anemia requiring transfusion, due to multiple AVM's; premalignant polyps. Await pathology from Monday biopsy (08/11). Attempting to obtain records from [facility] with pathology Surgery will not likely resolve her problem, as she likely has multiple polyps. Not sure whether octreotide or vasopressin would help. Shar Elmore MD Aug 14, 2017 20:31
[2017-08-15] VITALS: BP 102/61; PULSE 90; RESP 16; TEMP 96.6; O2SAT 95
[2017-08-15] MEDS: LEVOTHYROXINE SODIUM 25 MCG TAB PO SCH (05:27)
[2017-08-15] MEDS: CHOLESTYRAMINE LIGHT 4 GM PACKAGE PO SCH (07:50)
[2017-08-15] MEDS: CHOLECALCIFEROL (VIT D3) 5000 UNIT CAP PO SCH (07:50)
[2017-08-15] MEDS: FOLIC ACID 1 MG TAB PO SCH (07:50)
[2017-08-15] MEDS: FUROSEMIDE 20 MG TAB PO SCH (07:50)
[2017-08-15] MEDS: POTASSIUM CHLORIDE 20 MEQ CONTROLLED RELEASE TAB PO SCH (07:51)
[2017-08-15] MEDS: PANTOPRAZOLE SODIUM 40 MG VIAL IV PUSH SCH (07:51)
[2017-08-15] MEDS: DOCUSATE SODIUM 50 MG/SENNA 8.6 MG TAB PO SCH ×2 (07:52→20:03)
[2017-08-15] MEDS: 1/2 NS + KCL 20 MEQ INJ 1,000 ML IV SCH (07:53)
[2017-08-15 08:00] VITALS: BP 116/59; PULSE 97; RESP 19; TEMP 96.9; O2SAT 95
--- NOTE | 2017-08-15 11:24 | HHI.PR ---
Subjective Remarks Follow-up symptomatic anemia/GI bleeding/iron deficiency anemia 08/11/17-patient seen and examined, she was transfused 2 units packed red blood cell with improvement of H&H, denies any chest pain or shortness of breath this morning. Plan for panendoscopy. 08/12/17-patient seen and examined, had colonoscopy and EGD with finding of AVM which were ablated and a friable mass which general surgery was consulted. Her heart is stable and denies any current GI bleed. 08/13/17-patient seen and examined, stable and no complaints. No GI bleed. 08/14/17-patient seen and examined, doing well and resting possibly in bed. Tolerating by mouth without any complication of nausea or vomiting. 08/15/17-patient seen and examined, she is very anxious to leave the Hospital. Denies any bleeding Objective Vitals Vital Signs Date Time Temp Pulse Resp B/P (MAP) Pulse Ox O2 Delivery O2 Flow Rate FiO2 08/15/17 08:00 96.9 97 19 116/59 (78) 95 08/15/17 00:00 96.6 90 16 102/61 (75) 95 08/14/17 20:00 97.3 77 16 106/64 (78) 93 08/14/17 16:00 97.1 94 17 109/72 (84) 93 08/14/17 12:00 97.5 74 18 96/63 (74) 96 I/O 08/14/17 08/14/17 08/14/17 08/15/17 08/15/17 08/15/17 07:00 15:00 23:00 07:00 15:00 23:00 Intake Total 1000 ml 0 ml 700 ml 0 ml Balance 1000 ml 0 ml 700 ml 0 ml Intake Oral 1000 ml 700 ml IV Total 0 ml 0 ml # Voids 2 6 # Bowel Movements 3 2 Result Diagram: 08/14/17 0827 08/12/17 0744 Objective Remarks GENERAL: NAD SKIN: Warm and dry. HEAD: Normocephalic. EYES: No scleral icterus. No injection or drainage. NECK: Supple, trachea midline. No JVD or lymphadenopathy. CARDIOVASCULAR: Regular rate and rhythm without murmurs, gallops, or rubs. RESPIRATORY: Breath sounds equal bilaterally. No accessory muscle use. GASTROINTESTINAL: Abdomen soft, non-tender, nondistended. MUSCULOSKELETAL: No cyanosis, or edema. BACK: Nontender without obvious deformity. No CVA tenderness. A/P Problem List: (1) Anemia ICD Code: D64.9 - Anemia, unspecified Status: Chronic (2) GI bleed ICD Code: K92.2 - Gastrointestinal hemorrhage, unspecified Assessment and Plan 72-year-old female with 1. 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 Friable mass at the junction of the partial gastrectomy and the small bowel Finding per colonoscopy Appreciate input from general surgery pending biopsy report as well as records from [facility] with pathology from prior partial gastrectomy 2. Iron deficiency anemia Transfuse Venofer today 08/15/17 Outpatient follow up with Hematology 3. Hypothyroidism: Continue Synthroid. 4. Mild hypokalemia: resolved s/p Supplement potassium in IV fluids. 5. DVT prophylaxis: KAREN Mcclendon. Chemical prophylaxis contraindicated secondary to symptomatic anemia, GI bleed. Wally Tomlinson MD Aug 15, 2017 11:23
[2017-08-15 11:25] VITALS: PULSE 97
--- NOTE | 2017-08-15 11:51 | HHI.GIFU ---
Subjective Remarks Sitting in bed, family at bedside. No GI complaints. No bleeding. (Bibi Miranda) Objective Vitals I&O Vital Signs Date Time Temp Pulse Resp B/P (MAP) Pulse Ox O2 Delivery O2 Flow Rate FiO2 08/15/17 11:25 97 08/15/17 08:00 96.9 97 19 116/59 (78) 95 08/15/17 00:00 96.6 90 16 102/61 (75) 95 08/14/17 20:00 97.3 77 16 106/64 (78) 93 08/14/17 16:00 97.1 94 17 109/72 (84) 93 08/14/17 12:00 97.5 74 18 96/63 (74) 96 I/O 08/14/17 08/14/17 08/14/17 08/15/17 08/15/17 08/15/17 07:00 15:00 23:00 07:00 15:00 23:00 Intake Total 1000 ml 0 ml 700 ml 0 ml Balance 1000 ml 0 ml 700 ml 0 ml Intake Oral 1000 ml 700 ml IV Total 0 ml 0 ml # Voids 2 6 # Bowel Movements 3 2 Laboratory Laboratory Tests Test 08/15/17 11:15 Date/Time Source Procedure Growth Status 08/11/17 02:30 Stool Stool Cryptosporidium Exam - Final NEGATIVE - NO CRYPTOSPORIDIUM ANTIGEN... Complete 08/11/17 02:30 Stool Stool Giardia Antigen (NANCY) - Final NEGATIVE - NO GIARDIA ANTIGEN DETECTE... Complete Imaging Last Impressions Chest X-Ray 08/10/17 0000 Signed Impressions: Service Date/Time: August 15:05 - CONCLUSION: No acute disease. Wally Nix MD Physical Exam HEENT: PERRL; normocephalic; atraumatic; no jaundice CHEST: CTA CARDIAC: RRR ABDOMEN: Soft, nondistended, nontender; no hepatosplenomegaly; bowel sounds are present in all four quadrants. EXTREMITIES: No clubbing, cyanosis,+ BLE edema SKIN: pale; no rash; no jaundice. AMBULATORY NURSE: No focal deficits; alert and oriented times three. (Bibi Miranda) Assessment and Plan Plan Assessment: - Anemia, microcytic- history of anemia- receiving oral iron supplement at home, seen by studio owner for first time today to be started on iron transfusions, was sent to ER for severely low H/H. Currently 5.8/20.4. (+) nausea, no emesis. (+) heartburn, not controlled by Omeprazole. Last panendoscopy in Mar 2017, done by our service in office, will obtain records. Denies ETOH, smoking, NSAIDs, blood thinners. - Diarrhea- chronic since having partial gastrectomy/partial colectomy in 2014 but increasing in frequency since iron supplements changed a week and a half ago. Reports black stools, not new, started when she was started on iron supplements. - History of partial gastrectomy/partial colectomy at [facility] in January 2015 , daughter reports indication was excessive polyps causing obstruction. Will obtain office records. - Congenital renal agenesis Addendum: Office records reviewed -->S/P distal gastrectomy with Hurt anastomosis. Distal stomach and omentum resection: multiple polyps with hamartomatous/hyperplastic features measuring from 1.0 to 7.0 cm dimension. The largest polyp shows low-grade dysplasia and multiple foci of high-grade dysplasia. Focal low-grade dysplasia also seen in one additional polyp. Negative for invasive carcinoma, surgical margins negative for dysplasia. EGD (Mar 2017) --> Distal part of stomach resected. Multiple large polyps in the stomach with polypoid mass in junction from stomach to duodenum. Pathology --> acute gastritis. Many acute inflammatory cells with demes in lamina propia. Colonoscopy (Mar 2017) -->Colon polyp in transverse colon, colon polyp in descending colon, colon polyps x 3 in sigmoid colon, 1 cm polyp rectum. Polyps benign. 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 no further bleeding, HH relatively stable 08/13/17, patient states multiple diarrhea stools today, C. difficile negative on 08/11/17, hemoglobin stable at 8.6. Stool studies negative for enteric pathogens 08/14/17 bx still lpending. HH mild decrease. no obvious bleeding. 08/15/17 still waiting on bx result. HH stable. no bleeding. PLAN: JOSE await bx results Cholestyramine monitor HH PRBC as needed notify GI of active bleeding continue PPI Supportive care PT seen by myself and Dr Motley and this note is on his behalf (Bibi Miranda) Physician Comments Agree with above, will follow up with you. (Butch Motley MD) Bibi Miranda Aug 15, 2017 11:51 Butch Motley MD Aug 15, 2017 12:13
[2017-08-15 11:52] LABS: AUTOMATED NEUTROPHIL # 9.1 TH/MM3 (1.8-7.7); BASOPHIL # 0.1 TH/MM3 (0-0.2); BASOPHIL % 0.8 % (0.0-2.0); EOSINOPHIL # 0.1 TH/MM3 (0-0.4); EOSINOPHIL % 1.3 % (0.0-4.0); HEMATOCRIT 29.5 % (35.0-46.0); HEMOGLOBIN 9.2 GM/DL (11.6-15.3); LYMPH % 8.4 % (9.0-44.0); LYMPHOCYTE # 0.9 TH/MM3 (1.0-4.8); MEAN CELL VOLUME 71.3 FL (80.0-100.0); MEAN CORPUSCULAR HEMOGLOBIN 22.2 PG (27.0-34.0); MEAN CORPUSCULAR HGB CONC 31.1 % (32.0-36.0); MEAN PLATELET VOLUME 7.9 FL (7.0-11.0); MONO % 8.6 % (0.0-8.0); NEUT % 80.9 % (16.0-70.0); PLATELET COUNT 439 TH/MM3 (150-450); RED BLOOD COUNT 4.14 MIL/MM3 (4.00-5.30); WHITE BLOOD COUNT 11.2 TH/MM3 (4.0-11.0)
[2017-08-15 12:00] VITALS: BP 104/64; PULSE 99; RESP 20; TEMP 96.9; O2SAT 97
[2017-08-15] MEDS ORDERED: IRON SUCROSE INJ 200 MG in SODIUM CHLORIDE 0.9% INJ 100 ML IV ONE (12:00)
--- NOTE | 2017-08-15 12:27 | PD.ONC.PN ---
Subjective Subjective Remarks Afebrile overnight. Patient resting in bed. Daughters at bedside are anxious. waiting on biopsy. denies blood in stool. Objective Data Date Time Temp Pulse Resp B/P (MAP) Pulse Ox O2 Delivery O2 Flow Rate FiO2 08/15/17 11:25 97 08/15/17 08:00 96.9 97 19 116/59 (78) 95 08/15/17 00:00 96.6 90 16 102/61 (75) 95 08/14/17 20:00 97.3 77 16 106/64 (78) 93 08/14/17 16:00 97.1 94 17 109/72 (84) 93 08/15/17 08/15/17 08/15/17 07:00 15:00 23:00 Intake Total 0 ml Balance 0 ml Result Diagram: 08/15/17 1115 08/12/17 0744 Laboratory Results Laboratory Tests Test 08/15/17 11:15 White Blood Count 11.2 TH/MM3 Red Blood Count 4.14 MIL/MM3 Hemoglobin 9.2 GM/DL Hematocrit 29.5 % Mean Corpuscular Volume 71.3 FL Mean Corpuscular Hemoglobin 22.2 PG Mean Corpuscular Hemoglobin Concent 31.1 % Red Cell Distribution Width 27.0 % Platelet Count 439 TH/MM3 Mean Platelet Volume 7.9 FL Neutrophils (%) (Auto) 80.9 % Lymphocytes (%) (Auto) 8.4 % Monocytes (%) (Auto) 8.6 % Eosinophils (%) (Auto) 1.3 % Basophils (%) (Auto) 0.8 % Neutrophils # (Auto) 9.1 TH/MM3 Lymphocytes # (Auto) 0.9 TH/MM3 Monocytes # (Auto) 1.0 TH/MM3 Eosinophils # (Auto) 0.1 TH/MM3 Basophils # (Auto) 0.1 TH/MM3 CBC Comment AUTO DIFF Administered Medications Medications (Trade) Dose Ordered Sig/[place] Route PRN Reason Start Time Stop Time Status Last Admin Dose Admin Acetaminophen (Tylenol) 650 mg Q4H PRN PO TEMP > 100.4/pain 1-10 08/10/17 16:00 08/11/17 14:17 Senna/Docusate Sodium (Guadalupe-Colace) 1 tab BID PO 08/10/17 21:00 08/10/17 19:51 Potassium Chloride/Sodium Chloride 1,000 ml @ 70 mls/hr [id number] IV 08/10/17 16:00 08/12/17 13:52 Pantoprazole Sodium (Protonix Inj) 40 mg Q24H IV PUSH 08/11/17 09:00 08/15/17 07:51 Folic Acid (Folate) 1 mg DAILY PO 08/11/17 09:00 08/15/17 07:50 Cholecalciferol (Vitamin D3) 5,000 units DAILY PO 08/11/17 09:00 08/15/17 07:50 Furosemide (Lasix) 20 mg DAILY PO 08/13/17 09:00 08/15/17 07:50 Levothyroxine Sodium (Synthroid) 25 mcg DAILY@0600 PO 08/13/17 07:41 08/15/17 05:27 Potassium Chloride (KCl) 20 meq DAILY PO 08/13/17 09:00 08/15/17 07:51 Cholestyramine Resin (Questran Light Pkt) 4 gm DAILY PO 08/13/17 15:00 08/15/17 07:50 Objective Remarks GENERAL: Elderly female, sitting up in bed in [facility]. SKIN: Warm and dry. HEAD: Normocephalic. EYES: No injection or drainage. NECK: Supple, trachea midline. CARDIOVASCULAR: Regular rate and rhythm RESPIRATORY: Breath sounds equal bilaterally. No accessory muscle use. GASTROINTESTINAL: Abdomen soft, mildly tender in epigastrium, nondistended. EXTREMITIES: No cyanosis, or edema. NEUROLOGICAL: No obvious focal deficit. Awake, alert, and oriented x3. Assessment/Plan Problem List: (1) Severe anemia ICD Codes: D64.9 - Anemia, unspecified Status: Chronic Plan: 08/15: hgb=9 today. will give iron sucrose 200mg x 1. --++iron deficiency anemia, will need regular iron transfusions outpatient. --has had abdominal surgery, partial gastrectomy, colectomy that resulted in nutritional deficiency. --has evidence of vitamin D deficiency with a vitamin D of 8.5. --has known iron deficiency, but is pending parenteral iron therapy. --follows with [facility] Assessment 72y/o female with symptomatic anemia. history of arthritis, asthma, depression, cardiovascular disease, CHF, multiple strokes, gastroesophageal reflux, headaches. distal part of the stomach resected. part of the colon resected in 2014. Since then, she has had malabsorption problems. Plan 1. discussed w/ Dr. Cox pathology and relayed those informal results to patient family, explaining that the final is still pending, but the pathologist sees no evidence of malignancy. 2. we discussed following up with her cotton ball machine tender/oncologist in [place]. She has an appointment 3. will give small one time dose of IV iron today. daughter states they are getting IV iron again on in clinic. Attending Statement Agree with above. Hgb improve. Continue with plans to follow up with oncologist in [place]. Anjali Benton Aug 15, 2017 12:27 Sandra Resendiz MD Aug 15, 2017 18:06
--- NOTE | 2017-08-15 13:21 | HHI.PR ---
cc: Shar Elmore MD Subjective Subjective Notes Resting in bed getting ready to eat lunch Objective Vitals/I&O Vital Signs Date Time Temp Pulse Resp B/P (MAP) Pulse Ox O2 Delivery O2 Flow Rate FiO2 08/15/17 11:25 97 08/15/17 08:00 96.9 19 116/59 (78) 95 Labs Laboratory Tests Test 08/15/17 11:15 White Blood Count 11.2 Red Blood Count 4.14 Hemoglobin 9.2 Hematocrit 29.5 Mean Corpuscular Volume 71.3 Mean Corpuscular Hemoglobin 22.2 Mean Corpuscular Hemoglobin Concent 31.1 Red Cell Distribution Width 27.0 Platelet Count 439 Mean Platelet Volume 7.9 Neutrophils (%) (Auto) 80.9 Lymphocytes (%) (Auto) 8.4 Monocytes (%) (Auto) 8.6 Eosinophils (%) (Auto) 1.3 Basophils (%) (Auto) 0.8 Neutrophils # (Auto) 9.1 Lymphocytes # (Auto) 0.9 Monocytes # (Auto) 1.0 Eosinophils # (Auto) 0.1 Basophils # (Auto) 0.1 CBC Comment AUTO DIFF Differential Comment AUTO DIFF CONFIRMED Platelet Estimate HIGH Platelet Morphology Comment ENLARGED Date/Time Source Procedure Growth Status 08/11/17 02:30 Stool Stool Cryptosporidium Exam - Final NEGATIVE - NO CRYPTOSPORIDIUM ANTIGEN... Complete 08/11/17 02:30 Stool Stool Giardia Antigen (NANCY) - Final NEGATIVE - NO GIARDIA ANTIGEN DETECTE... Complete Cardiovascular: Regular Lungs: Clear Abdomen: Non-distended, Non-tender, Other Extremities: No edema A/P Problem List: (1) GERD (gastroesophageal reflux disease) ICD Codes: K21.9 - Gastro-esophageal reflux disease without esophagitis Status: Chronic (2) Anemia ICD Codes: D64.9 - Anemia, unspecified Status: Chronic (3) GI bleed ICD Codes: K92.2 - Gastrointestinal hemorrhage, unspecified (4) Severe anemia ICD Codes: D64.9 - Anemia, unspecified Status: Chronic Assessment and Plan 72 year old female with Anemia requiring transfusion, due to multiple AVM's; premalignant polyps. -Awaiting final pathology report -Reviewed records from [facility] -Would recommend outpatient follow up with Hematology -If surgery required recommend referral to [facility] [facility] -GS clear for DC -No follow up in our office needed Attending Note - Dr. Elmore No pain; with multiple AVM's and polyps, needs to be at tertiary care center for level of care she will need as an extremely complex patient Not actively bleeding; bx was benign. The exam, history, and the medical decision-making described in the above note were completed with the assistance of the mid-level provider. I reviewed and agree with the findings presented. I attest that I had a [id number] encounter with the patient on the same day, and personally performed and documented my assessment and findings in the medical record. Kerri Aguilar/[employer] [place] Aug 15, 2017 13:21 Shar Elmore MD Aug 16, 2017 13:30
[2017-08-15 16:00] VITALS: BP 101/59; PULSE 79; RESP 18; TEMP 96.9; O2SAT 95
[2017-08-15 20:00] VITALS: BP 84/46; PULSE 95; RESP 16; TEMP 97.4; O2SAT 95
[2017-08-16] VITALS: BP 89/64; PULSE 83; RESP 16; TEMP 97.2; O2SAT 93
[2017-08-16] MEDS: LEVOTHYROXINE SODIUM 25 MCG TAB PO SCH (05:09)
[2017-08-16 08:00] VITALS: BP 100/65; PULSE 105; RESP 15; TEMP 96.7; O2SAT 91
[2017-08-16] MEDS: DOCUSATE SODIUM 50 MG/SENNA 8.6 MG TAB PO SCH (09:00)
[2017-08-16] MEDS: FOLIC ACID 1 MG TAB PO SCH (09:03)
[2017-08-16] MEDS: FUROSEMIDE 20 MG TAB PO SCH (09:03)
[2017-08-16] MEDS: POTASSIUM CHLORIDE 20 MEQ CONTROLLED RELEASE TAB PO SCH (09:03)
[2017-08-16] MEDS: CHOLECALCIFEROL (VIT D3) 5000 UNIT CAP PO SCH (09:03)
[2017-08-16] MEDS: PANTOPRAZOLE SODIUM 40 MG VIAL IV PUSH SCH (09:04)
[2017-08-16] MEDS: CHOLESTYRAMINE LIGHT 4 GM PACKAGE PO SCH (09:06)
--- NOTE | 2017-08-16 10:59 | HHI.PR ---
Subjective Remarks Follow-up symptomatic anemia/GI bleeding/iron deficiency anemia 08/11/17-patient seen and examined, she was transfused 2 units packed red blood cell with improvement of H&H, denies any chest pain or shortness of breath this morning. Plan for panendoscopy. 08/12/17-patient seen and examined, had colonoscopy and EGD with finding of AVM which were ablated and a friable mass which general surgery was consulted. Her heart is stable and denies any current GI bleed. 08/13/17-patient seen and examined, stable and no complaints. No GI bleed. 08/14/17-patient seen and examined, doing well and resting possibly in bed. Tolerating by mouth without any complication of nausea or vomiting. 08/15/17-patient seen and examined, she is very anxious to leave the Hospital. Denies any bleeding 08/16/17-patient seen and examined, doing well and denies any bleeding episode. she was transfused Venofer yesterda Objective Vitals Vital Signs Date Time Temp Pulse Resp B/P (MAP) Pulse Ox O2 Delivery O2 Flow Rate FiO2 08/16/17 08:00 96.7 105 15 100/65 (77) 91 08/16/17 00:00 97.2 83 16 89/64 (72) 93 08/15/17 20:00 97.4 95 16 84/46 (59) 95 08/15/17 16:00 96.9 79 18 101/59 (73) 95 08/15/17 12:00 96.9 99 20 104/64 (77) 97 08/15/17 11:25 97 I/O 08/15/17 08/15/17 08/15/17 08/16/17 08/16/17 08/16/17 07:00 15:00 23:00 07:00 15:00 23:00 Intake Total 0 ml 860 ml 240 ml Output Total 1000 ml Balance 0 ml -140 ml 240 ml Intake Oral 760 ml 240 ml IV Total 0 ml 100 ml Output Urine Total 1000 ml # Voids 4 # Bowel Movements 0 3 Result Diagram: 08/15/17 1115 08/12/17 0744 Imaging Last Impressions Chest X-Ray 08/10/17 0000 Signed Impressions: Service Date/Time: August 15:05 - CONCLUSION: No acute disease. Wally Nix MD Objective Remarks GENERAL: NAD SKIN: Warm and dry. HEAD: Normocephalic. EYES: No scleral icterus. No injection or drainage. NECK: Supple, trachea midline. No JVD or lymphadenopathy. CARDIOVASCULAR: Regular rate and rhythm without murmurs, gallops, or rubs. RESPIRATORY: Breath sounds equal bilaterally. No accessory muscle use. GASTROINTESTINAL: Abdomen soft, non-tender, nondistended. MUSCULOSKELETAL: No cyanosis, or edema. BACK: Nontender without obvious deformity. No CVA tenderness. Procedures Panendoscopy A/P Problem List: (1) Anemia ICD Code: D64.9 - Anemia, unspecified Status: Chronic (2) GI bleed ICD Code: K92.2 - Gastrointestinal hemorrhage, unspecified Assessment and Plan 72-year-old female with 1. 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 Iron deficiency anemia Transfused Venofer 08/15/17 Outpatient follow up with Hematology 3. Hypothyroidism: Continue Synthroid. 4. Mild hypokalemia: resolved s/p Supplement potassium in IV fluids. 5. DVT prophylaxis: NARENDRAsKAREN. Chemical prophylaxis contraindicated secondary to symptomatic anemia, GI bleed. Wally Tomlinson MD Aug 16, 2017 10:59
--- NOTE | 2017-08-16 11:05 | HHI.DS ---
Discharge Summary Admission Date Aug 10, 2017 at 15:34 Discharge Date: Aug 16, 2017 Admitting Diagnosis anemia, hypoalbuminemia, GI bleed (1) Anemia ICD Code: D64.9 - Anemia, unspecified Status: Chronic (2) GI bleed ICD Code: K92.2 - Gastrointestinal hemorrhage, unspecified Procedures Panendoscopy Brief History - From Admission Patient is a 72-year-old female with history of partial gastrectomy who presented to the emergency department for evaluation of low hemoglobin. Her champagne maker check labs as an outpatient and found her hemoglobin to be 5.8. She was referred to the ER for further evaluation. Patient has a history of anemia and iron deficiency secondary to poor absorption from her prior stomach surgery. She reports fatigue and weakness. 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 Denies chest pain. She reports that her automatic chief, Dr. Nunez, performed panendoscopy in March and referred the patient to hematology at that time. CBC/BMP: 08/15/17 1115 08/12/17 0744 Significant Findings Laboratory Tests Test 08/14/17 08:27 08/15/17 11:15 Red Blood Count 3.70 MIL/MM3 (4.00-5.30) Hemoglobin 8.1 GM/DL (11.6-15.3) 9.2 GM/DL (11.6-15.3) Hematocrit 26.3 % (35.0-46.0) 29.5 % (35.0-46.0) Mean Corpuscular Volume 71.1 FL (80.0-100.0) 71.3 FL (80.0-100.0) Mean Corpuscular Hemoglobin 22.0 PG (27.0-34.0) 22.2 PG (27.0-34.0) Mean Corpuscular Hemoglobin Concent 30.9 % (32.0-36.0) 31.1 % (32.0-36.0) Red Cell Distribution Width 26.6 % (11.6-17.2) 27.0 % (11.6-17.2) Neutrophils (%) (Auto) 77.2 % (16.0-70.0) 80.9 % (16.0-70.0) Monocytes (%) (Auto) 10.2 % (0.0-8.0) 8.6 % (0.0-8.0) Neutrophils # (Auto) 7.9 TH/MM3 (1.8-7.7) 9.1 TH/MM3 (1.8-7.7) Lymphocytes # (Auto) 0.9 TH/MM3 (1.0-4.8) 0.9 TH/MM3 (1.0-4.8) Monocytes # (Auto) 1.0 TH/MM3 (0-0.9) 1.0 TH/MM3 (0-0.9) Toxic Granulation 1+ (NORMAL) Platelet Morphology Comment CLUMPED (NORMAL) ENLARGED (NORMAL) Keratocytes OCC (NORMAL) White Blood Count 11.2 TH/MM3 (4.0-11.0) Lymphocytes (%) (Auto) 8.4 % (9.0-44.0) Platelet Estimate HIGH (NORMAL) Imaging Last Impressions Chest X-Ray 08/10/17 0000 Signed Impressions: Service Date/Time: August 15:05 - CONCLUSION: No acute disease. Wally Nix MD PE at Discharge GENERAL: NAD SKIN: Warm and dry. HEAD: Normocephalic. EYES: No scleral icterus. No injection or drainage. NECK: Supple, trachea midline. No JVD or lymphadenopathy. CARDIOVASCULAR: Regular rate and rhythm without murmurs, gallops, or rubs. RESPIRATORY: Breath sounds equal bilaterally. No accessory muscle use. GASTROINTESTINAL: Abdomen soft, non-tender, nondistended. MUSCULOSKELETAL: No cyanosis, or edema. BACK: Nontender without obvious deformity. No CVA tenderness. Hospital Course while in the hospital, patient was treated for: 1. 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 Iron deficiency anemia Transfused Venofer 08/15/17 Outpatient follow up with Hematology 3. Hypothyroidism: Treated with Synthroid. 4. Mild hypokalemia: resolved s/p Supplement potassium in IV fluids. 5. DVT prophylaxis: SCDsKAREN. Chemical prophylaxis contraindicated secondary to symptomatic anemia, GI bleed. Pt Condition on Discharge: Good Discharge Disposition: Discharge Home Discharge Time: <= 30 minutes Discharge Instructions DIET: Follow Instructions for: Heart Healthy Diet Activities you can perform: Regular-No Restrictions Wally Tomlinson MD Aug 16, 2017 11:05
[2017-08-16 12:00] VITALS: BP 96/59; PULSE 86; RESP 16; TEMP 97.1; O2SAT 94
== END 2017-08-16 12:10 | disposition home or self-care (01) | DRG 345 ==
LOC: NEPE 13:07 → NEDA 15:34 → N07B 18:43
PROVIDERS: ADMIT Hospitalist; ATTEND Hospitalist
PROC: 30233N1 Transfusion of Nonautologous Red Blood Cells into Peripheral Vein, Percutaneous Approach (ICD-10-PCS; 2017-08-10)
PROC: 0DB68ZX Excision of Stomach, Via Natural or Artificial Opening Endoscopic, Diagnostic (ICD-10-PCS; 2017-08-11)
PROC: 0W3P8ZZ Control Bleeding in Gastrointestinal Tract, Via Natural or Artificial Opening Endoscopic (ICD-10-PCS; 2017-08-11)
PROC: 0D588ZZ Destruction of Small Intestine, Via Natural or Artificial Opening Endoscopic (ICD-10-PCS; principal; 2017-08-11 10:58)
DX: K92.2 Gastrointestinal hemorrhage, unspecified (principal); K90.9 Intestinal malabsorption, unspecified; I50.9 Heart failure, unspecified; E88.09 Other disorders of plasma-protein metabolism, not elsewhere classified; D50.9 Iron deficiency anemia, unspecified; M19.90 Unspecified osteoarthritis, unspecified site; J45.909 Unspecified asthma, uncomplicated; K21.9 Gastro-esophageal reflux disease without esophagitis; E03.9 Hypothyroidism, unspecified; R00.0 Tachycardia, unspecified; E87.6 Hypokalemia; K31.819 Angiodysplasia of stomach and duodenum without bleeding; I25.10 Atherosclerotic heart disease of native coronary artery without angina pectoris; E07.9 Disorder of thyroid, unspecified; E63.9 Nutritional deficiency, unspecified; E55.9 Vitamin D deficiency, unspecified; Z90.3 Acquired absence of stomach [part of]; Z86.73 Personal history of transient ischemic attack (TIA), and cerebral infarction without residual deficits; Z90.49 Acquired absence of other specified parts of digestive tract; Z86.010 Personal history of colon polyps
CPT/HCPCS: 36430; 71045; 80048; 80053; 81001; 82607; 82728; 82746; 83540; 83550; 83615; 84155; 85014; 85018; 85025; 85044; 85610; 85730; 86850; 86900; 86901; 86920; 87328; 87329; 87493; 87506; 88305; 88312; 93005; C9113; J0171; J1756; J3420; P9016